=== PATIENT | female | born 1945 | race Asian ===

== ENCOUNTER 2018-09-06 15:44 | Inpatient (IN) | payer MEDICARE, BC ==
[~2018-09-06] VITALS: Ht 160 cm; Wt 71.1 kg
--- NOTE | 2018-09-06 16:02 | ERD ---
ER Documentation Chief Complaint Chief Complaint FROM HOME C/O NAUSEA,VOMITING,DIARRHEA SINCE YESTERDAY HPI 72-year-old female with a history of, hyperlipidemia, thyroid disease status post spine surgery April 2017 presents to the ED by ambulance for evaluation of abdominal pain. Paramedics report that milk collector was at the scene and stated that she spoke to the patient earlier and the patient seemed confused but now is back to her baseline. Patient states that after eating sushi last night that her sister brought over she developed crampy, generalized, now rating abdominal pain and multiple episodes of nonbloody non-mucoid diarrhea. Subsequently became nauseated and throughout the night had several episodes of nonbloody, nonbilious emesis. She complains of ongoing, generalized, crampy, moderate, nonradiating abdominal pain which localizes to the epigastrium. No relieving or exacerbating factors. Denies dysuria, polyuria hematuria. No chest pain, palpitations or shortness of breath. No fevers or chills. ROS All systems reviewed and are negative except as per history of present illness. Medications Home Meds Active Scripts Ondansetron (Ondansetron Odt) 4 Mg Tab.rapdis, 4 MG PO Q6H PRN for NAUSEA AND/OR VOMITING, #10 TAB Prov:EMILY OSPINA MD 09/06/18 Reported Medications Doxycycline Hyclate* (Doxycycline Hyclate*) 100 Mg Tablet.dr, 100 MG PO DAILY, TAB 09/06/18 Levocarnitine* (Levocarnitine*) 330 Mg Tablet, 330 MG PO BID, TAB 09/06/18 Docusate Sodium* (Colace*) 100 Mg Capsule, 100 MG PO BID, #60 CAP 09/06/18 Vitamin B Complex* (Vitamin B Complex*) 1 Each Tablet, 1 TAB PO DAILY, TAB 09/06/18 Acetaminophen* (Acetaminophen*) 500 MG Extra Strength Tablet, 500 MG PO Q4H PRN for PAIN AND OR ELEVATED TEMP, TAB 09/06/18 Sennosides* (Senna Lax*) 8.6 Mg Tablet, 2 TAB PO DAILY PRN for CONSTIPATION, TAB 09/06/18 Fluticasone Propionate* (Fluticasone Propionate* Nasal) 50 Mcg/Arabi - 16 Gm Arabi.susp, 1 SPRAY NASAL DAILY, #1 BOTTLE TO EACH NOSTRIL 09/06/18 Folic Acid* (Folic Acid*) 1 Mg Tablet, 1 MG PO DAILY, TAB 09/06/18 Simvastatin (Simvastatin) 10 Mg Tablet, 10 MG PO QHS, #30 TAB 09/06/18 Omeprazole* (Omeprazole*) 40 Mg Capsule.dr, 40 MG PO AC BREAKFAST, #30 CAP 09/06/18 Methimazole* (Methimazole*) 5 Mg Tablet, 5 MG PO DAILY, TAB 09/06/18 Duloxetine Hcl* (Duloxetine Hcl*) 60 Mg Capsule.dr, 60 MG PO DAILY, #30 CAP 09/06/18 Losartan Potassium* (Losartan Potassium*) 25 Mg Tablet, 25 MG PO DAILY, TAB 09/06/18 Gabapentin* (Gabapentin*) 100 Mg Capsule, 200 MG PO BID, #180 CAP 09/06/18 Ubidecarenone* (Co Q-10*) 100 Mg Capsule, 100 MG PO DAILY, CAP 09/06/18 Midodrine* (Midodrine*) 5 Mg Tablet, 5 MG PO TID, TAB 09/06/18 Allergies Allergies: Coded Allergies: hydromorphone (Verified Allergy, Severe, 09/06/18) PMhx/Soc Reviewed in chart. As per HPI. History of Surgery: Yes (Spinal fixation) Anesthesia Reaction: No Hx Neurological Disorder: No Hx Respiratory Disorders: No Hx Cardiac Disorders: Yes Hx Psychiatric Problems: No (Hypertension) Hx Miscellaneous Medical Probl: Yes (Hyperlipidemia, thyroid) Hx Alcohol Use: No Hx Substance Use: No Hx Tobacco Use: No (Improved) FmHx No cancer or stroke Physical Exam Vitals Vital Signs Date Temp Pulse Resp B/P (MAP) Pulse Ox O2 O2 Flow FiO2 Time Delivery Rate 09/06/18 98.1 92 18 124/73 98 Room Air 18:50 (90) 09/06/18 98 20 120/79 99 Room Air 17:52 (93) 09/06/18 99.0 101 18 118/77 99 15:49 (91) Physical Exam Const: No acute distress Head: Atraumatic Eyes: Normal Conjunctiva ENT: Normal External Ears, Nose and Mouth. Neck: Full range of motion. No meningismus. Resp: Clear to auscultation bilaterally Cardio: Regular rate and rhythm, no murmurs Abd: Soft, non tender, non distended. Normal bowel sounds Skin: No petechiae or rashes Back: No midline or flank tenderness Ext: No cyanosis, or edema Neur: Awake and alert Psych: Normal Mood and Affect Result Diagram: 09/06/18 1704 09/06/18 1704 Results 24 hrs Laboratory Tests Test 09/06/18 17:04 09/06/18 17:48 White Blood Count 7.8 10^3/ul Red Blood Count 4.82 10^6/ul Hemoglobin 12.4 g/dl Hematocrit 41.2 % Mean Corpuscular Volume 85.5 fl Mean Corpuscular Hemoglobin 25.7 pg Mean Corpuscular Hemoglobin Concent 30.1 g/dl Red Cell Distribution Width 15.4 % Platelet Count 321 10^3/UL Mean Platelet Volume 9.2 fl Immature Granulocytes % 0.400 % Neutrophils % 87.2 % Lymphocytes % 6.2 % Monocytes % 6.0 % Eosinophils % 0.1 % Basophils % 0.1 % Nucleated Red Blood Cells % 0.0 /100WBC Immature Granulocytes # 0.030 10^3/ul Neutrophils # 6.8 10^3/ul Lymphocytes # 0.5 10^3/ul Monocytes # 0.5 10^3/ul Eosinophils # 0.0 10^3/ul Basophils # 0.0 10^3/ul Nucleated Red Blood Cells # 0.0 10^3/ul Sodium Level 142 mmol/L Potassium Level 4.0 mmol/L Chloride Level 105 mmol/L Carbon Dioxide Level 20 mmol/L Anion Gap 17 Blood Urea Nitrogen 27 mg/dl Creatinine 1.09 mg/dl Est Glomerular Filtrat Rate mL/min mL/min Glucose Level 122 mg/dl Calcium Level 9.4 mg/dl Total Bilirubin 0.1 mg/dl Direct Bilirubin 0.00 mg/dl Indirect Bilirubin 0.1 mg/dl Aspartate Amino Transf (AST/SGOT) 38 IU/L Alanine Aminotransferase (ALT/SGPT) 16 IU/L Alkaline Phosphatase 155 IU/L Troponin I < 0.012 ng/ml Total Protein 8.6 g/dl Albumin 4.1 g/dl Globulin 4.50 g/dl Albumin/Globulin Ratio 0.91 Lipase 58 U/L Urine Color TRACIE Urine Clarity CLOUDY Urine pH 5.0 Urine Specific [place] 1.027 Urine Ketones NEGATIVE mg/dL Urine Nitrite NEGATIVE mg/dL Urine Bilirubin 1+ mg/dL Urine Urobilinogen NEGATIVE mg/dL Urine Leukocyte Esterase TRACE Mor/ul Urine Microscopic RBC 7 /HPF Urine Microscopic WBC 10 /HPF Urine Squamous Epithelial Cells FEW /HPF Urine Amorphous Crystals FEW /HPF Urine Bacteria FEW /HPF Urine Granular Casts FEW /HPF Urine Mucus FEW /HPF Urine Hemoglobin NEGATIVE mg/dL Urine Glucose NEGATIVE mg/dL Urine Total Protein 1+ mg/dl Current Medications Medications Dose Sig/Rosy Start Time Status Last (Trade) Ordered Route PRN Stop Time Admin Dose Reason Admin Sodium 500 ml @ Q1H STAT 09/06/18 DC 09/06/18 Chloride 500 mls/hr IV 16:28 17:05 09/06/18 17:27 Ondansetron 4 mg ONCE STAT 09/06/18 DC 09/06/18 HCl (Zofran IV 16:28 17:03 Inj) 09/06/18 16:32 Famotidine 20 mg ONCE ONCE 09/06/18 DC 09/06/18 (Pepcid Iv) IV 16:30 17:03 09/06/18 16:32 Ketorolac 10 mg ONCE STAT 09/06/18 DC 09/06/18 Tromethamine IV 16:28 17:04 (Toradol) 09/06/18 16:32 IV Flush 10 ml STK-MED 09/06/18 DC (NS 10 ml) ONCE .ROUTE 18:08 09/06/18 18:09 Sodium 100 ml @ ud STK-MED 09/06/18 DC Chloride ONCE .ROUTE 18:08 09/06/18 18:09 Iodixanol 100 ml STK-MED 09/06/18 DC (Visipaque ONCE .ROUTE 18:08 Locm) 09/06/18 18:09 Procedures/MDM DOCUMENTS REVIEWED: ED nurse, prior records EKG: Time: 1638. Sinus tachycardia. Ventricular rate 108. Normal [place] QRS. Nonspecific T wave changes. No acute ST segment elevation or depression. My Interpretation IMAGING: PROCEDURE: CT Abdomen and pelvis with contrast. CLINICAL INDICATION: Abdominal pain. TECHNIQUE: CT scan of the abdomen and pelvis with contrast was performed on a multi-detector high-resolution CT scanner. The patient was scanned following the uncomplicated administration of 100 cc of Omnipaque 300 intravenous contrast. Coronal and sagittal reformatted images were obtained from the axial source images. Images were reviewed on a high-resolution PACS workstation. DICOM images are available. One or more of the following dose reduction techniques were used: - Automated exposure control. - Adjustment of the mA and/or kV according to patient size. - Use of iterative reconstruction technique. Exam CTD/vol = 12.05 mGy. Total exam DLP = 722.91 mGy-cm. COMPARISON: None. FINDINGS: Evaluation of the lung bases demonstrates mild bibasilar atelectasis. The heart is mildly enlarged. There is a small hiatal hernia. Bilateral breast implants are present. Abdomen: The liver is normal in size. There is no focal mass or dilatation of the biliary tree. The gallbladder is distended and contains multiple gallstones. The spleen, pancreas and bilateral adrenal glands are within normal limits. Bilateral kidneys are normal in size with symmetric enhancement. There are tiny renal cortical cysts bilaterally. There is no hydronephrosis or hyd roureter. There is no retroperitoneal adenopathy. The abdominal aorta is of normal caliber with mild scattered atherosclerotic calcifications. There are air-fluid levels within the small large bowel. There is no bowel obstruction or free air. A normal appendix is identified. There are scattered diverticuli within the descending and sigmoid colon without evidence of diverticulitis. There is no ascites. Pelvis: The bladder is unremarkable. The uterus and adnexa are within normal limits. There is no significant pelvic adenopathy or free fluid. Evaluation of the osseous structures demonstrates no suspicious lytic or blastic lesion. There is an old fracture of the superior endplate of L2 with severe posterior displacement and marked lordotic deformity. There is a mild compression deformity of the T12 vertebral body with up to 30% loss in vertebral body height. There is posterior stabilization with bilateral rods and pedicle screws throughout the thoracolumbar spine. There is prior interbody fusion at L4-L5 and L5-S1. IMPRESSION: Air-fluid levels within the small and large bowel suggestive of an ileus. There is no bowel obstruction. Scattered diverticuli within the descending and sigmoid colon without evidence of diverticulitis. Cholelithiasis. Mild bibasilar atelectasis. Mild cardiomegaly. Small hiatal hernia. Mild vascular calcifications reflective of atherosclerosis. Old fracture of the superior endplate of L2 with severe posterior displacement and marked lordotic deformity. There are postsurgical changes with posterior stabilization with bilateral rods and pedicle screws. Mild deformity of T12, age indeterminate. .Nirmal Mráquez MD, MD Date Time Electronically viewed and signed by .Nirmal Márquez MD, MD on 09/06/2018 19:06 .T/ REEXAMINATION/REEVALUATION: Time: 2044. Well. Alert. Abdomen soft nontender. Time: 20:31. Observation Note: Time: 4 hours Family Hx: No Hypertension Evaluation: Multiple exams showed improving symptoms and no evidence of an acute intra-abdominal process or indication for admission. MEDICAL DECISION MAKIN-year-old female with a history of, hyperlipidemia, thyroid disease status post spine surgery April 2017 presents to the ED by ambulance for evaluation of abdominal pain. CBC is unremarkable for leukocytosis or anemia. Chemistry reveals elevated BUN/creatinine but no electrolyte abnormalities. EKG consistent with sinus tachycardia but no ischemic changes or ectopy. Troponin is not elevated. CT of the abdomen pelvis with intravenous contrast performed to evaluate for acute process including but not limited to appendicitis, diverticulitis, bowel obstruction, perforated viscus, mesenteric ischemia, obstructive uropathy and abdominal aortic aneurysm reveals dilated loops of bowel consistent with ileus but no small bowel obstruction. Patient improved with intravenous hydration, analgesics and antiemetics. Observed in the ED for over 4 hours. Abdomen is soft nontender, tolerating PO's and stable for discharge precautionary instructions and outpatient follow-up as counseled. Stable for discharge with precautionary instructions and outpatient follow-up as counseled. Counseled patient regarding diagnostic workup, diagnosis and need for followup. Understands to return to ED if symptoms recur, worsen or any other concerns. Departure Diagnosis: Primary Impression: Acute generalized abdominal pain Additional Impressions: Nausea vomiting and diarrhea Ileus Condition: Stable (Improved) EMILY OSPINA MD Sep 06, 2018 16:02
[2018-09-06] MEDS ORDERED: ONDANSETRON 4 MG INJ IV STA (16:28)
[2018-09-06] MEDS ORDERED: SOD CHLORIDE 0.9% 500 ML IV STA (16:28)
[2018-09-06] MEDS ORDERED: KETOROLAC 15 MG INJ IV STA (16:28)
[2018-09-06] MEDS ORDERED: MIDO5TAB PO (16:29)
[2018-09-06] MEDS ORDERED: UBID100C44 PO (16:30)
[2018-09-06] MEDS ORDERED: FAMOTIDINE 20 MG INJ IV ONE (16:30)
[2018-09-06] MEDS ORDERED: GABA100C14 PO (16:30)
[2018-09-06] MEDS ORDERED: LOSA25TA6 PO (16:41)
[2018-09-06] MEDS ORDERED: DULO60CA59 PO (16:41)
[2018-09-06] MEDS ORDERED: OMEP40CA6 PO (16:42)
[2018-09-06] MEDS ORDERED: METH-493 PO (16:42)
[2018-09-06] MEDS ORDERED: FOLI-49 PO (16:43)
[2018-09-06] MEDS ORDERED: FLUT16SP17 NASAL (16:43)
[2018-09-06] MEDS ORDERED: ZOC10 PO (16:43)
[2018-09-06] MEDS ORDERED: ACET-141 PO (16:44)
[2018-09-06] MEDS ORDERED: SENN-120 PO (16:44)
[2018-09-06] MEDS ORDERED: VIT1TABL46 PO (16:45)
[2018-09-06] MEDS ORDERED: LEVO330T PO (16:46)
[2018-09-06] MEDS ORDERED: DOCU-144 PO (16:46)
[2018-09-06] MEDS ORDERED: DOXY100T20 PO (16:47)
[2018-09-06] MEDS ORDERED: SOD CHLORIDE 0.9% 100 ML ONE (18:08)
[2018-09-06] MEDS ORDERED: IODIXANOL LOCM 100 ML BTL ONE (18:08)
[2018-09-06] MEDS ORDERED: ONDA4TAB14 PO (21:20)
[2018-09-06] MEDS ORDERED: CEFTRIAXONE 1 GM/50 ML (PMX) 50 ML IVPB SCH (23:00)
[2018-09-06] MEDS ORDERED: ONDANSETRON 4 MG INJ IV PRN (23:00)
[2018-09-06] MEDS ORDERED: ACETAMINOPHEN 325 MG TAB PO PRN (23:00)
[2018-09-06] MEDS ORDERED: NACL 0.9% 3 ML SYG IV SCH (23:00)
[2018-09-06] MEDS ORDERED: MAGNESIUM SULFATE 1 GM/D5W 100 ML IVPB ONE (23:00)
[2018-09-07] MEDS: SOD CHLORIDE 0.9% 1,000 ML IV SCH ×3 (00:02→09:24)
--- NOTE | 2018-09-07 00:06 | HP ---
Date/Time of Note Date/Time of Note DATE: 09/07/18 TIME: 00:06 Assessment/Plan VTE Prophylaxis Pharmacological prophylaxis: heparin Lines/Catheters IV Catheter Type (from Nrs): Saline Lock Assessment/Plan Hospital Course This is a 72-year-old female being admitted to the telemetry floor for: #1 acute encephalopathy: Likely toxic metabolic. At the current time patient appears to be back at baseline. We will continue to monitor closely on telemetry. We will need to confirm with the caregiver the patient's baseline. CT scan of the head did not show any acute abnormalities. Likely downgrade to MedSurg in the a.m. as long as no acute events overnight. #2 ileus: Secondary possibly to underlying gastroenteritis versus UTI versus other. Patient does have history of thyroid disease as well. Will check TSH levels. Patient does report the symptoms started after eating sushi. Will check stool studies. IV fluid hydration normal saline to keep patient n.p.o. except meds pain control. Check magnesium level and potassium levels. KUB in the a.m. #3 urinary tract infection: Ceftriaxone 1 g every 24 hours, urine culture #4 thyroid disease: Suspect hyperthyroidism: Patient is currently on methimazole. Will check TSH and thyroid studies. Resume methimazole #5 Anxiety: Resume duloxetine as indicated #6 GERD: IV Protonix #7 questionable hypotension: We will need to confirm whether the patient is on Midodrine in the a.m. #8 Hypertension: Resume losartan in the a.m. provided we will function stay stable #9 DVT GI prophylaxis: Heparin subcu,, Protonix IV Further treatment strategy will be implemented as per the clinical course. Result Diagram: 09/06/18 1704 09/06/18 1704 Results 24hrs Laboratory Tests Test 09/06/18 17:04 09/06/18 17:48 White Blood Count 7.8 Red Blood Count 4.82 Hemoglobin 12.4 Hematocrit 41.2 Mean Corpuscular Volume 85.5 Mean Corpuscular Hemoglobin 25.7 L Mean Corpuscular Hemoglobin Concent 30.1 L Red Cell Distribution Width 15.4 H Platelet Count 321 Mean Platelet Volume 9.2 Immature Granulocytes % 0.400 Neutrophils % 87.2 H Lymphocytes % 6.2 L Monocytes % 6.0 Eosinophils % 0.1 Basophils % 0.1 Nucleated Red Blood Cells % 0.0 Immature Granulocytes # 0.030 Neutrophils # 6.8 Lymphocytes # 0.5 L Monocytes # 0.5 Eosinophils # 0.0 Basophils # 0.0 Nucleated Red Blood Cells # 0.0 Sodium Level 142 Potassium Level 4.0 Chloride Level 105 Carbon Dioxide Level 20 L Anion Gap 17 H Blood Urea Nitrogen 27 H Creatinine 1.09 H Est Glomerular Filtrat Rate mL/min Glucose Level 122 Calcium Level 9.4 Total Bilirubin 0.1 L Direct Bilirubin 0.00 Indirect Bilirubin 0.1 Aspartate Amino Transf (AST/SGOT) 38 Alanine Aminotransferase (ALT/SGPT) 16 Alkaline Phosphatase 155 H Troponin I < 0.012 Total Protein 8.6 H Albumin 4.1 Globulin 4.50 H Albumin/Globulin Ratio 0.91 Lipase 58 Urine Color TRACIE Urine Clarity CLOUDY A Urine pH 5.0 Urine Specific [place] 1.027 Urine Ketones NEGATIVE Urine Nitrite NEGATIVE Urine Bilirubin 1+ H Urine Urobilinogen NEGATIVE Urine Leukocyte Esterase TRACE A Urine Microscopic RBC 7 H Urine Microscopic WBC 10 H Urine Squamous Epithelial Cells FEW Urine Amorphous Crystals FEW A Urine Bacteria FEW A Urine Granular Casts FEW A Urine Mucus FEW A Urine Hemoglobin NEGATIVE Urine Glucose NEGATIVE Urine Total Protein 1+ H HPI/ROS Admit Date/Time Admit Date/Time Hx of Present Illness Chief complaint: Abdominal pain This is a 72-year-old female with a history of, hyperlipidemia, thyroid disease status post spine surgery April 2017 presented to the by ambulance for evaluation of abdominal pain. Patient states that after eating sushi last night that her sister brought over she developed crampy, generalized, abdominal pain and multiple episodes of nonbloody non-mucoid diarrhea. Subsequently became nauseated and throughout the night had several episodes of nonbloody, nonbilious emesis. She complains of ongoing, generalized, crampy, moderate, nonradiating abdominal pain which localizes to the epigastrium. No relieving or exacerbating factors. Denies dysuria, polyuria hematuria. No chest pain, palpitations or shortness of breath. No fevers or chills. Of note patient was to be discharged from the emergency department however she was noted to be confused and a CT scan of the head was ordered which did not show any acute normality's. Upon my examination of the patient at the bedside she was alert and oriented x3. Allergies: Hydromorphone Medications: See Nov Const: As per HPI Eyes : No pain discharge or redness or change in visual acuity ENT: No pain, sore throat, congestion, congestion, dysphagia or discharge Respiratory: No shortness of breath, cough, sputum, wheezing, or pleuritic pain Cardiovascular: No chest pain, palpitation, PND, or edema GI : As per HPI Genitourinary: Urinary frequency, suprapubic pain Musculoskeletal: No joint pain, back pain, neck pain, restricted range of motion in neck or joints Skin: No rash, bruising or hives Neuro: No headache, dizziness, syncope, seizure, focal weakness Endocrine: No polyuria, polydipsia, temperature intolerance Psych: No hallucination, depression, anxiety or suicidal ideation PMH/Family/Social Past Medical History hyperlipidemia, thyroid disease , anxiety, GERD Medications Current Medications Sodium Chloride 1,000 ml @ 100 mls/hr Q10H IV Last administered on 09/07/18at 00:02; Admin Dose 100 MLS/HR; Start 09/06/18 at 22:45 IV Flush (NS 3 ml) 3 ml PER PROTOCOL IV ; Start 09/06/18 at 23:00 Ondansetron HCl (Zofran Inj) 4 mg Q6H PRN IV NAUSEA AND/OR VOMITING; Start 09/06/18 at 23:00 Acetaminophen (Tylenol Tab) 650 mg Q6H PRN PO PAIN LEVEL 1-3 OR FEVER; Start 09/06/18 at 23:00 Enoxaparin Sodium (Lovenox) 30 mg DAILY SC ; Start 09/07/18 at 09:00 Ceftriaxone Sodium 50 ml @ 100 mls/hr Q24H IVPB ; Start 09/06/18 at 23:00 Coded Allergies: hydromorphone (Verified Allergy, Severe, 09/06/18) Past Surgical History status post spine surgery April 2017 Family History Significant Family History: no pertinent family hx Social History Alcohol Use: none Smoking Status: Never smoker Drug Use: none Exam/Review of Systems Vital Signs Vitals Vital Signs Date Temp Pulse Resp B/P (MAP) Pulse Ox O2 O2 Flow FiO2 Time Delivery Rate 09/06/18 98.1 92 18 124/73 98 Room Air 18:50 (90) Exam Exam General: Patient is a pleasant female currently lying in bed in no acute distress HEENT: Atraumatic, normocephalic. The pupils are equal, round and reactive. Extraocular motor are intact Neck: Supple with full range of motion. No rigidity or meningismus Chest: Nontender Lungs: Clear to auscultation bilaterally no crackles rales or wheezing Heart: Normal S1-S2, Regular rhythm and rate. No murmur, S3, or S4 Abdomen: Obese, soft , currently nontender to palpation, nondistended, hypoactive bowel sounds, no guarding no rebound tenderness , No masses or organomegaly. No costovertebral temporal angle mass Extremities: Normal to inspection, no edema no cyanosis Neurologic: Normal mental status, speech normal, cranial nerves II through XII are intact, motor and sensory are intact, Additional Comments PROCEDURE: CT Abdomen and pelvis with contrast. CLINICAL INDICATION: Abdominal pain. TECHNIQUE: CT scan of the abdomen and pelvis with contrast was performed on a multi-detector high-resolution CT scanner. The patient was scanned following the uncomplicated administration of 100 cc of Omnipaque 300 intravenous contrast. Coronal and sagittal reformatted images were obtained from the axial source images. Images were reviewed on a high-resolution PACS workstation. DICOM images are available. One or more of the following dose reduction techniques were used: - Automated exposure control. - Adjustment of the mA and/or kV according to patient size. - Use of iterative reconstruction technique. Exam CTD/vol = 12.05 mGy. Total exam DLP = 722.91 mGy-cm. COMPARISON: None. FINDINGS: Evaluation of the lung bases demonstrates mild bibasilar atelectasis. The heart is mildly enlarged. There is a small hiatal hernia. Bilateral breast implants are present. Abdomen: The liver is normal in size. There is no focal mass or dilatation of the biliary tree. The gallbladder is distended and contains multiple gallstones. The spleen, pancreas and bilateral adrenal glands are within normal limits. Bilateral kidneys are normal in size with symmetric enhancement. There are tiny renal cortical cysts bilaterally. There is no hydronephrosis or hydroureter. There is no retroperitoneal adenopathy. The abdominal aorta is of normal caliber with mild scattered atherosclerotic calcifications. There are air-fluid levels within the small large bowel. There is no bowel obstruction or free air. A normal appendix is identified. There are scattered diverticuli within the descending and sigmoid colon without evidence of diverticulitis. There is no ascites. Pelvis: The bladder is unremarkable. The uterus and adnexa are within normal limits. There is no significant pelvic adenopathy or free fluid. Evaluation of the osseous structures demonstrates no suspicious lytic or blastic lesion. There is an old fracture of the superior endplate of L2 with severe posterior displacement and marked lordotic deformity. There is a mild compression deformity of the T12 vertebral body with up to 30% loss in vertebral body height. There is posterior stabilization with bilateral rods and pedicle screws throughout the thoracolumbar spine. There is prior interbody fusion at L4-L5 and L5-S1. IMPRESSION: Air-fluid levels within the small and large bowel suggestive of an ileus. There is no bowel obstruction. Scattered diverticuli within the descending and sigmoid colon without evidence of diverticulitis. Cholelithiasis. Mild bibasilar atelectasis. Mild cardiomegaly. Small hiatal hernia. Mild vascular calcifications reflective of atherosclerosis. Old fracture of the superior endplate of L2 with severe posterior displacement and marked lordotic deformity. There are postsurgical changes with posterior stabilization with bilateral rods and pedicle screws. Mild deformity of T12, age indeterminate. .Nirmal Márquez MD, MD Date Time Electronically viewed and signed by .Nirmal Márquez MD, MD on 09/06/2018 19:06 .T/ CC: EMILY OSPINA MD [id number] PROCEDURE: CT Brain without contrast. CLINICAL INDICATION: 72-year-old female. Altered mental status. Confusion. TECHNIQUE: A CT of the brain was performed on a multi-slice CT scanner utilizing axial imaging from the skull base through the vertex without IV contrast. Multiplanar reformatted images were made. Images were reviewed on a PACS workstation. One or more the following dose reduction techniques were utilized: Automated exposure control, adjustment of mA/ or kV according to patient's size, or use of iterative reconstruction technique. DICOM images are available for review. The CTDIvol is 39.64 mGy and the DLP is 634.23 mGycm. COMPARISON: None FINDINGS: Images were obtained after the patient received intravenous contrast for a CT abdomen pelvis exam earlier in the evening. The patient's head was not symmetrically placed in the art department head. No mass effect or midline shift. Normal ventricles for age. No acute intra-axial or extra-axial hemorrhage. No subdural collection. Solomon - white matter differentiation is maintained. No venous enhancement versus contrast enhancing pineal gland with anterior calcification, measuring 9.0 mm in transverse diameter. Visualized paranasal sinuses are clear. Mastoid air cells are clear. IMPRESSION: No acute changes. Contrast enhancing vein of Dave versus 9 mm enhancing pineal gland with anterior calcification. RPTAT: [facility] Physician Angelica Date Time Electronically viewed and signed by Physician Angelica on 09/06/2018 22:18 RS/ CC: EMILY OSPINA MD [id number] ALINE WEBSTER Sep 07, 2018 00:06
[2018-09-07 00:40] VITALS: BP 132/68; PULSE 78; RESP 18
[2018-09-07 00:45] VITALS: Ht 160 cm; Wt 71.1 kg
--- NOTE | 2018-09-07 01:15 | NUR ---
Pt refused admission photos. Pt is alert and oriented x4.
--- NOTE | 2018-09-07 06:00 | NUR ---
End of Shift Summary No change in pt condition. See pt assessment and EMAR.
--- NOTE | 2018-09-07 06:30 | NUR ---
Pt is incontinent and uses diapers at home. Pt refused chux and the mesh underwear with a pad. Notified charge nurse, Chris, and a diaper was placed on the pt.
--- NOTE | 2018-09-07 07:15 | NUR ---
Left voice message for pt POA, Medhat Tran, that pt will be transferred to the [address] [place] [address] to room #3808.
[2018-09-07 07:27] VITALS: BP 118/59; PULSE 96; RESP 20
[2018-09-07] MEDS ORDERED: ENOXAPARIN 30 MG/0.3 ML SYG SC SCH (09:00)
[2018-09-07] MEDS ORDERED: INFLUENZA VIRUS VACCINE 0.5 ML (DISPENSING) IM* ONE (09:00)
[2018-09-07] MEDS: HEPARIN 5,000 UNIT/1 ML VIAL SC SCH ×3 (09:30→21:02)
--- NOTE | 2018-09-07 11:24 | PN ---
Date/Time of Note Date/Time of Note DATE: 09/07/18 TIME: 11:15 Assessment/Plan VTE Prophylaxis Risk score (from Ns)>0 risk: 4 [place] [facility] [place] contraindicated: low risk/ambulating Pharmacological prophylaxis: NA/contraindicated Pharm contraindication: low risk/ambulating, renal impairment Lines/Catheters IV Catheter Type (from [facility]): Peripheral IV Urinary Cath still in place: No Assessment/Plan Hospital Course SUBJECTIVE: Lying in bed, feeling hungry and wants to eat. She is passing flatus. No bowel movement today. Last BM yesterday. But she does not feel any constipated. No fevers, dysuria, hematuria,N/V or abdominal pain. OBJECTIVE: Vital signs-see below PHYSICAL EXAM: Constitutional: Well-developed, adequately built, lying in bed comfortably. Psych: nl mood/affect, no complaints Head: atraumatic, normocephalic Eyes: nl conjunctiva, nl sclera ENMT: mucosa pink and moist, nl external ears & nose Neck: non-tender, supple Respiratory: clear to auscultation, normal air movement Cardiovascular: nl pulses, regular rate and rhythm Gastrointestinal: Obese/protuberant abdomen. Non-tender, soft, bowel sounds active in all 4 quadrants. Musculoskeletal/extremities: nl extremities to inspection, motor strength equal bilaterally, no focal deficit. Normal pulses,no cyanosis, no edema. Neurological: Alert oriented 3,nl speech, nl strength Skin: nl turgor ASSESSMENT/PLAN:72-year-old female with a past medical history of hypertension, dyslipidemia, hyperthyroidism, presented to the emergency room with sudden onset of nausea/vomiting/diarrhea after she had a sushi dinner last night. 1. Acute gastroenteritis, likely food/seafood intolerance. -Symptoms resolved. -Start clear diet and advance as tolerated. 2. Possible ileus in light of #1 -Symptoms resolved. We will start patient on diet. 3. Acute kidney injury. Patient's UA abnormal With positive RBC, amorphous crystals, and granular cast. Patient also take losartan at home. -Abdominal CT did not show any kidney stones. -We will obtain a KUB -Hold losartan. -Continue gentle hydration. -Nephrology following. We will follow-up recommendations. -Renal ultrasound has been ordered. 4. Hyperthyroidism -On methimazole treatment. Recommend outpatient follow-up 5. Hypertension -We will hold losartan in the setting of acute kidney injury. -Blood pressure stable without any antihypertensive. We will continue to monitor and intervene as needed. 6. Dyslipidemia -Resume statin once stable for p.o. 7. Depressive disorders. -Resume Cymbalta once stable for p.o. DVT prophylaxis: SCDs PUD prophylaxis: Pepcid CODE STATUS: Full code Diet: Clear diet and advance as tolerated. Disposition: Stop antibiotic. Continue current medical management. Monitor renal function closely. Follow-up ordered tests. Patient was seen in collaboration with Dr. Richard. Result Diagram: 09/07/18 0444 09/07/18 0444 Results 24hrs Laboratory Tests Test 09/06/18 17:04 09/06/18 17:48 09/07/18 04:44 White Blood Count 7.8 7.2 Red Blood Count 4.82 4.68 Hemoglobin 12.4 12.2 Hematocrit 41.2 40.7 Mean Corpuscular Volume 85.5 87.0 Mean Corpuscular Hemoglobin 25.7 L 26.1 L Mean Corpuscular 30.1 L 30.0 L Hemoglobin Concent Red Cell Distribution Width 15.4 H 15.7 H Platelet Count 321 290 Mean Platelet Volume 9.2 9.1 Immature Granulocytes % 0.400 0.600 H Neutrophils % 87.2 H 83.7 H Lymphocytes % 6.2 L 9.1 L Monocytes % 6.0 6.1 Eosinophils % 0.1 0.4 Basophils % 0.1 0.1 Nucleated Red Blood Cells % 0.0 0.0 Immature Granulocytes # 0.030 0.040 H Neutrophils # 6.8 6.0 Lymphocytes # 0.5 L 0.7 L Monocytes # 0.5 0.4 Eosinophils # 0.0 0.0 Basophils # 0.0 0.0 Nucleated Red Blood Cells # 0.0 0.0 Sodium Level 142 141 Potassium Level 4.0 4.1 Chloride Level 105 101 Carbon Dioxide Level 20 L 23 Anion Gap 17 H 17 H Blood Urea Nitrogen 27 H 33 H Creatinine 1.09 H 1.50 H Est Glomerular Filtrat Rate mL/min Glucose Level 122 99 Calcium Level 9.4 9.0 Total Bilirubin 0.1 L 0.0 L Direct Bilirubin 0.00 0.00 Indirect Bilirubin 0.1 0.0 Aspartate Amino 38 39 Transf (AST/SGOT) Alanine 16 27 Aminotransferase (ALT/SGPT) Alkaline Phosphatase 155 H 128 H Troponin I < 0.012 Total Protein 8.6 H 7.6 # Albumin 4.1 3.9 Globulin 4.50 H 3.70 H Albumin/Globulin Ratio 0.91 1.05 Lipase 58 Urine Color TRACIE Urine Clarity CLOUDY A Urine pH 5.0 Urine Specific [place] 1.027 Urine Ketones NEGATIVE Urine Nitrite NEGATIVE Urine Bilirubin 1+ H Urine Urobilinogen NEGATIVE Urine Leukocyte Esterase TRACE A Urine Microscopic RBC 7 H Urine Microscopic WBC 10 H Urine Squamous Epithelial Cells FEW Urine Amorphous Crystals FEW A Urine Bacteria FEW A Urine Granular Casts FEW A Urine Mucus FEW A Urine Hemoglobin NEGATIVE Urine Glucose NEGATIVE Urine Total Protein 1+ H Hemoglobin A1c 5.5 Magnesium Level 2.2 Triglycerides Level 132 Cholesterol Level 163 LDL Cholesterol, Calculated 98 HDL Cholesterol 39 Cholesterol/HDL Ratio 4.1 Thyroid Stimulating 4.810 H Hormone (TSH) Free Thyroxine Index 2.19 Thyroxine (T4) 6.2 Free Triiodothyronine (T3) pg/mL 2.36 L Triiodothyronine (T3) Uptake 35.3 Exam/Review of Systems Vital Signs Vitals Vital Signs Date Temp Pulse Resp B/P (MAP) Pulse Ox O2 O2 Flow FiO2 Time Delivery Rate 09/07/18 98.2 96 20 118/59 100 Nasal 07:27 (78) Cannula 09/07/18 3.0 00:45 Intake and Output 09/06/18 09/06/18 09/07/18 1515:00 23:00 07:00 IntakeIntake Total 300 ml BalanceBalance 300 ml Medications Medications Current Medications Sodium Chloride 1,000 ml @ 100 mls/hr Q10H IV Last administered on 09/07/18at 09:24; Admin Dose 100 MLS/HR; Start 09/06/18 at 22:45 IV Flush (NS 3 ml) 3 ml PER PROTOCOL IV ; Start 09/06/18 at 23:00 Ondansetron HCl (Zofran Inj) 4 mg Q6H PRN IV NAUSEA AND/OR VOMITING; Start 09/06/18 at 23:00 Acetaminophen (Tylenol Tab) 650 mg Q6H PRN PO PAIN LEVEL 1-3 OR FEVER; Start 09/06/18 at 23:00 Ceftriaxone Sodium 50 ml @ 100 mls/hr Q24H IVPB Last administered on 09/07/18at 02:22; Admin Dose 100 MLS/HR; Start 09/06/18 at 23:00 Heparin Sodium (Porcine) (Heparin (5000 Units/1ml)) 5,000 unit Q8 SC Last administered on 09/07/18at 09:30; Admin Dose 5,000 UNIT; Start 09/07/18 at 07:00 Methimazole (Tapazole) 5 mg DAILY PO ; Start 09/07/18 at 09:00 SHANKAR CORREA NP Sep 07, 2018 11:23
[2018-09-07] MEDS ORDERED: SENNA TAB PO PRN (11:30)
[2018-09-07] MEDS: METHIMAZOLE 5 MG TAB PO SCH (12:16)
--- NOTE | 2018-09-07 12:32 | CONS ---
DATE OF ADMISSION: 09/06/2018 DATE OF CONSULTATION: 09/07/2018 TYPE OF CONSULTATION: Nephrology. REASON FOR CONSULTATION: Acute kidney injury. REQUESTING PHYSICIAN: Marek Webster MD HISTORY OF PRESENT ILLNESS: This is a 72-year-old female with a past medical history of dyslipidemia , history of hypothyroidism, history of scoliosis, status post spine surgery 2016 who presented to [facility] Emergency Room for evaluation of abdominal pain. The patient states that she is karina sargent today before, started developing crampy generalized pain, abdominal pain with multiple epi sodes of nonbloody, nonmucus diarrhea. The patient's symptoms progressed. As a result, she came to the Emergency Room. Upon arrival, she had a CT scan of the head which did not show any acute finding s. A CT scan of abdomen and pelvis was performed which showed findings of a small and large bowel di latation suggestive of ileus. No evidence of obstruction. The patient in the Emergency Room was giv en IV fluids and admitted to med/surg for evaluation. In terms of patient's renal history, the patient denies any prior history of chronic kidney disease. On admission, the patient had creatinine 1.09 mg/dL which is increased to 1.5 mg/dL. The patient di d receive a course of Toradol and did have hemodynamic fluctuations. There are no reports of any hem optysis, hematemesis or hematochezia. PAST MEDICAL HISTORY: History of hypothyroidism, history of GERD, history of anxiety, dyslipidemia. PAST SURGICAL HISTORY: Status post surgery 04/2017. FAMILY HISTORY: No family history of kidney disease. SOCIAL HISTORY: Does not drink, smoke or do drugs. MEDICATIONS: The patient's medications have been reviewed. REVIEW OF SYSTEMS: A 14-point review of systems conducted. Pertinent positives stated in HPI, other rojo negative. PHYSICAL EXAMINATION: VITAL SIGNS: Blood pressure is 118/59, respirations 20, pulse 96, temperature 98.2. HEENT: Head is normocephalic. NECK: Supple. HEART: Regular rate. LUNGS: Show diminished breath sounds at the base. ABDOMEN: Soft, nontender to palpation without rebound or guarding. EXTREMITIES: Negative for clubbing, cyanosis, no edema. DERMATOLOGIC: No rashes. MUSCULOSKELETAL: No joint effusion. NEUROLOGIC: No change in exam. MEDICATIONS: The patient's medications have been reviewed. LABORATORY DATA: Shows sodium 141, potassium 4.1, BUN 33, creatinine 1.50. White count 7.2, hemoglo bin 12.2, platelet count is 290. ASSESSMENT AND PLAN: This is a 72-year-old female who presents with: 1. Nonoliguric acute kidney injury with unknown baseline creatinine. Etiology of acute kidney injur y is possibly due to acute tubular necrosis, hemodynamics. The patient's urinalysis does show eviden ce of granular casts, which can be seen with tubular injury. The patient also noted to have mild pyu maco, hematuria and proteinuria on urinalysis. Plan at this point is to do a full evaluation. Will c heck a renal ultrasound to rule out obstruction. Will repeat a urinalysis. Will check urine electro lytes. We will continue patient on IV hydration. Would avoid any NSAIDs, KELSEY inhibitor or ARBs duri ng the hospital course. Monitor I's and O's. Continue supportive care, renally dose all meds, avoid nephrotoxins. 2. Mineral bone disorder, monitor calcium and phosphorus levels. 3. Ileus. The patient's CT scan shows findings consistent with ileus. Etiology may be secondary to gastroenteritis. Will continue to monitor. Follow up with GI. Continue bowel rest, IV hydration. 5. Urinary tract infection. Continue current antibiotic regimen. 6. Hypothyroidism. Continue Synthroid. 7. Acute encephalopathy, etiology is likely toxic metabolic. Continue to monitor. CT scan is negat ale for acute stroke. 8. History of hypertension. The patient is currently on IV fluids. Will hold blood pressure medica tions and monitor. Thank you, Dr. Webster, for this interesting consult. It will be a pleasure to follow patient with y ou throughout the hospital course. Dictated By: NITIN MORAN DO NR/NTS Conf#: [id number] DID#: [id number] CC: MAREK WEBSTER MD;*EndCC*
[2018-09-07 14:42] VITALS: BP 101/55; PULSE 81; RESP 16
--- NOTE | 2018-09-07 18:32 | NUR ---
Continuity of care downgraded from 6W TELE, head to toe assessment done. No sob , no acute distress , dry stage 2 pressure ulcers left buttocks kept clean and covered w/ non adherent dressing. Wound consult tomorrow, incontinent b&b assisted ADLS safety measures provided and VS within range will continue POC
[2018-09-07 20:30] VITALS: BP 136/66; PULSE 81; RESP 18
[2018-09-07] MEDS: DOCUSATE SODIUM 100 MG CAP PO SCH ×2 (21:00→21:01)
[2018-09-08] MEDS: SOD CHLORIDE 0.9% 1,000 ML IV SCH (01:39)
[2018-09-08 02:25] VITALS: BP 138/65; PULSE 95; RESP 18
[2018-09-08] MEDS: HEPARIN 5,000 UNIT/1 ML VIAL SC SCH ×3 (05:10→21:36)
--- NOTE | 2018-09-08 05:59 | NUR ---
No acute changes during shift. Pt safe and free from injury. Pt A&Ox4 and able to make needs known. All needs anticipated and attended to. Pt slept through the night. Repositioned pt and checked for incontinence Q2H. Pt pain assessed and controlled through shift. No signs of discomfort or distress. No SOB. Pt currently sleeping comfortably in bed. Bed alarm on, call light within reach. Will continue to monitor.
[2018-09-08 08:27] VITALS: BP 164/76; PULSE 75; RESP 20
[2018-09-08] MEDS: DOCUSATE SODIUM 100 MG CAP PO SCH ×2 (09:00→21:00)
[2018-09-08] MEDS: DULOXETINE 30 MG CAP DR PO SCH (09:40)
[2018-09-08] MEDS: METHIMAZOLE 5 MG TAB PO SCH (09:41)
--- NOTE | 2018-09-08 10:06 | PN ---
DATE: 09/08/2018 SUBJECTIVE: The patient noted to have diarrhea overnight. No other events noted. No hemoptysis, he matemesis, hematochezia. OBJECTIVE: VITAL SIGNS: Blood pressure is 164/76, respirations 20, pulse 75, temperature 97.7. HEENT: Head is normocephalic. NECK: Supple. HEART: Regular rate. LUNGS: Show diminished breath sounds at the base. ABDOMEN: Soft, nontender to palpation without rebound or guarding. EXTREMITIES: Negative for clubbing, cyanosis, no edema. DERMATOLOGIC: No rashes. MUSCULOSKELETAL: No joint effusion. NEUROLOGIC: No change in exam. MEDICATIONS: The patient's medications have been reviewed. LABORATORY DATA: Shows sodium 140, BUN 28, creatinine 1.06. White count 6.3, hemoglobin 11.2, plate let count is 272. The patient's urinalysis shows FENa greater than 1%, a protein creatinine ratio ap proximately 24 mg per gram of creatinine. Renal ultrasound was reviewed, shows no hydronephrosis. ASSESSMENT AND PLAN: 1. Nonoliguric acute kidney injury with unknown baseline creatinine. Etiology of acute kidney injur y is likely multifactorial secondary to tubular injury hemodynamics. The patient's renal function ugarte s improved with IV hydration. At this point, will continue current treatment plans, supportive care, renally dose all meds. Monitor closely. 2. Mineral bone disorder, monitor calcium and phosphatase levels. 3. Ileus. The patient is clinically improving. Continue to monitor. Follow up with GI. 4. Urinary tract infection. Continue antibiotic regimen. 5. Hypothyroidism. Continue Synthroid. 6. Acute encephalopathy, etiology toxic metabolic. Continue to monitor. 7. Hypertension. The patient's blood pressure remains elevated. Will discontinue IV fluids, monito r closely. Dictated By: NITIN MORAN DO NR/NTS Conf#: [id number] DID#: [id number] CC: ALINE WEBSTER MD;*EndCC*
--- NOTE | 2018-09-08 12:51 | PN ---
Date/Time of Note Date/Time of Note DATE: 09/08/18 TIME: 12:48 Assessment/Plan VTE Prophylaxis Risk score (from Ns)>0 risk: 3 SCD applied (from [facility] [place] Yes Pharmacological prophylaxis: NA/contraindicated Pharm contraindication: renal impairment, anticoag not tolerated Lines/Catheters IV C[facility]ter Type (from [facility]): Peripheral IV Urinary Cath still in place: No Assessment/Plan Hospital Course SUBJECTIVE: No acute overnight episodes. Patient has been tolerating full liquid diet. No abdominal pain no nausea or vomiting reported. OBJECTIVE: Vital signs-see below PHYSICAL EXAM: Constitutional: Well-developed, adequately built, lying in bed comfortably. Psych: nl mood/affect, no complaints Head: atraumatic, normocephalic Eyes: nl conjunctiva, nl sclera ENMT: mucosa pink and moist, nl external ears & nose Neck: non-tender, supple Respiratory: clear to auscultation, normal air movement Cardiovascular: nl pulses, regular rate and rhythm Gastrointestinal: Obese/protuberant abdomen. Non-tender, soft, bowel sounds active in all 4 quadrants. Musculoskeletal/extremities: nl extremities to inspection, motor strength equal bilaterally, no focal deficit. Normal pulses,no cyanosis, no edema. Neurological: Alert oriented 3,nl speech, nl strength Skin: nl turgor ASSESSMENT/PLAN:72-year-old female with a past medical history of hypertension, dyslipidemia, hyperthyroidism, presented to the emergency room with sudden onset of nausea/vomiting/diarrhea after she had a sushi dinner last night. 1. Acute gastroenteritis, likely food/seafood intolerance. -Symptoms resolved. 2. Possible ileus in light of #1 -Symptoms resolved. -Advance diet as tolerated. 3. Acute kidney injury, multifactorial with ATN/hemodynamics. -Renal function stabilized. -Appreciate nephrology input. -Avoid nephrotoxins. 4. Hyperthyroidism -On methimazole treatment. Recommend outpatient follow-up 5. Hypertension -With stable blood pressure except for one episode of SBP above 160, likely attributed by fluids. -Discontinue IV fluids and monitor blood pressure. If blood pressure remains high, will start her on antihypertensive. 6. Dyslipidemia -Continue statin 7. Depressive disorders. -Continue Cymbalta DVT prophylaxis: SCDs PUD prophylaxis: Pepcid CODE STATUS: Full code Diet: Clear diet and advance as tolerated. Disposition: Overall, patient with improvement in symptoms. We will advance diet further. Anticipate discharge in a.m. if patient remains medically stable. Will also obtain PT eval and treatment. Patient was seen in collaboration with Dr. Richard. Result Diagram: 09/08/18 0641 09/08/18 0641 Results 24hrs Laboratory Tests Test 09/07/18 15:45 09/08/18 06:41 Urine Color TRACIE Urine Clarity SLIGHTLY CLOUDY A Urine pH 5.0 Urine Specific [place] 1.049 H Urine Ketones NEGATIVE Urine Nitrite NEGATIVE Urine Bilirubin NEGATIVE Urine Urobilinogen NEGATIVE Urine Leukocyte Esterase TRACE A Urine Microscopic RBC 16 H Urine Microscopic WBC 8 H Urine Squamous Epithelial Cells FEW Urine Bacteria FEW A Urine Mucus FEW A Urine Hemoglobin 1+ H Urine Random Creatinine 125.16 Urine Random Sodium 84 Urine Glucose NEGATIVE Urine Total Protein 30.0 H White Blood Count 6.3 Red Blood Count 4.30 Hemoglobin 11.2 L Hematocrit 36.7 L Mean Corpuscular Volume 85.3 Mean Corpuscular Hemoglobin 26.0 L Mean Corpuscular Hemoglobin Concent 30.5 L Red Cell Distribution Width 15.3 H Platelet Count 272 Mean Platelet Volume 9.3 Immature Granulocytes % 0.200 Neutrophils % 71.0 Lymphocytes % 18.6 Monocytes % 8.3 Eosinophils % 1.6 Basophils % 0.3 Nucleated Red Blood Cells % 0.0 Immature Granulocytes # 0.010 Neutrophils # 4.5 Lymphocytes # 1.2 Monocytes # 0.5 Eosinophils # 0.1 Basophils # 0.0 Nucleated Red Blood Cells # 0.0 Sodium Level 140 Potassium Level 4.4 Chloride Level 106 Carbon Dioxide Level 19 L Anion Gap 15 H Blood Urea Nitrogen 28 H Creatinine 1.07 H Est Glomerular Filtrat Rate mL/min Glucose Level 84 Calcium Level 8.8 Phosphorus Level 4.1 Magnesium Level 2.0 Exam/Review of Systems Vital Signs Vitals Vital Signs Date Temp Pulse Resp B/P (MAP) Pulse Ox O2 O2 Flow FiO2 Time Delivery Rate 09/08/18 97.7 75 20 164/76 98 Room Air 08:27 (105) 09/07/18 3.0 00:45 Intake and Output 09/07/18 09/07/18 09/08/18 1515:00 23:00 07:00 IntakeIntake Total 550 ml 1340 ml 525 ml BalanceBalance 550 ml 1340 ml 525 ml Medications Medications Current Medications IV Flush (NS 3 ml) 3 ml PER PROTOCOL IV ; Start 09/06/18 at 23:00 Ondansetron HCl (Zofran Inj) 4 mg Q6H PRN IV NAUSEA AND/OR VOMITING; Start 09/06/18 at 23:00 Acetaminophen (Tylenol Tab) 650 mg Q6H PRN PO PAIN LEVEL 1-3 OR FEVER Last administered on 09/08/18at 03:41; Admin Dose 650 MG; Start 09/06/18 at 23:00 Heparin Sodium (Porcine) (Heparin (5000 Units/1ml)) 5,000 unit Q8 SC Last administered on 09/08/18at 05:10; Admin Dose 5,000 UNIT; Start 09/07/18 at 07:00 Methimazole (Tapazole) 5 mg DAILY PO Last administered on 09/08/18at 09:41; Admin Dose 5 MG; Start 09/07/18 at 09:00 Docusate Sodium (Colace) 100 mg BID PO ; Start 09/07/18 at 21:00 Duloxetine HCl (Cymbalta) 60 mg DAILY PO Last administered on 09/08/18at 09:40; Admin Dose 60 MG; Start 09/08/18 at 09:00 Senna (Senokot) 2 tab DAILY PRN PO CONSTIPATION; Start 09/07/18 at 11:30 SHANKAR CORREA NP Sep 08, 2018 12:51
[2018-09-08 15:04] VITALS: BP 153/68; PULSE 74; RESP 18
--- NOTE | 2018-09-08 19:46 | NUR ---
EOSS: Skin assessed, no new wounds, R buttocks has two allevyns in place, no worsening in condition. Protective allevyn placed on sacrum. Patient encouraged to move in bed and turn q2, pillow provided to assist with turns. Pt denied pain or nausea during shift. IV fluids stopped. Pt remains incontinent, but was changed whenever chux was soiled. Pt encouraged to ambulate with assistance of RIP MACHINE OPERATOR. SCDs placed. BP elevated in 150-160s during shift, [facility] aware, no new orders. Call light within reach, bed alarm on. Pt denies further needs at this time.
[2018-09-08 20:00] VITALS: BP 145/67; PULSE 73; RESP 18
[2018-09-09 02:00] VITALS: BP 140/60; PULSE 75; RESP 18
--- NOTE | 2018-09-09 06:22 | NUR ---
1915 Pt received aaox4 vital signs stable. Pt oriented to security shift manager nurse and [facility] safety protocol including hourly rounding and an active bed alarm. Pt verbalized understanding. Pt denies further needs at this time. 2100 Scheduled medications administered w/o difficulty. Bed bath given by RN and ALLEY CLEANER. Pt denied pain at this time. 0000 Pt resting comfortably in bed, eyes closed, respirations regular and even. 0600 No significant changes noted throughout the night. Pt changed by ALLEY CLEANER episode of diarrhea x1 occured. Pt changed and kept clean and dry. Nursing will continue to monitor and endorse to morning shift to ensure pt safety and continuity of care.
[2018-09-09] MEDS: HEPARIN 5,000 UNIT/1 ML VIAL SC SCH ×2 (07:02→13:53)
[2018-09-09 08:31] VITALS: BP 176/77; PULSE 95; RESP 18
[2018-09-09] MEDS: DOCUSATE SODIUM 100 MG CAP PO SCH (08:42)
[2018-09-09] MEDS: DULOXETINE 30 MG CAP DR PO SCH (08:43)
[2018-09-09] MEDS ORDERED: AMLODIPINE 5 MG TAB PO SCH (09:00)
--- NOTE | 2018-09-09 09:02 | NUR ---
Wound Care Consult: This is a 72-year-old female with a history of, hyperlipidemia, thyroid disease status post spine surgery April 2017 presented to the ED by ambulance for evaluation of abdominal pain. Patient states that after eating sushi the night before admission that her sister brought over she developed crampy, generalized, abdominal pain and multiple episodes of nonbloody non-mucoid diarrhea. Of note patient was to be discharged from the emergency department however she was noted to be confused and a CT scan of the head was ordered which did not show any acute normality's. Patient at the bedside is alert and oriented x3. Wound care team consulted for wounds present on admission Mid spine (Thoracic area) surgical scar. Intact and clean. Keep clean and dry Bilateral heels, intact and clean Left ischial (identified by unit RN as left inner buttocks) healing pressure injury stage 2. 3cm x 2cm. Skin intact and no drainage noted. Keep area clean and dry, apply foam border dressing daily and as needed. Left gluteal area (edge of posterior iliac crest) healing pressure injury stage 2 with surrounding discoloration vs deep tissue injury. 2cm x 2.5cm. Wound bed with healing fibrous tissue (pink) color. Wound edge with noted Discoloration vs DTI. Periwound intact. No drainage, no odor. Note: Patient with noted urinary incontinence. Treatment recommendation include, cleanse area with normal saline, pat dry, apply Venelex ointment and cover with foam border dressing BID and as needed. Incontinent care as needed Encourage repositioning every 2 hours per department protocol Elevate Heels with pillows to off-load WOPORSHA coordinated with Vanda, unit RN regarding assessment and treatment recommendation. Nicho Cordero, ASMITA MSN WOCN CM
[2018-09-09] MEDS: METHIMAZOLE 5 MG TAB PO SCH (10:30)
[2018-09-09] MEDS ORDERED: AMLODIPINE 2.5 MG TAB PO SCH (10:30)
--- NOTE | 2018-09-09 10:49 | NUR ---
PT EVAL Therapy day number 1 Evaluation Start Time 09:43 Evaluation Total Time 0 min Subjective Denies pain Pain Scale NUMERIC Pain Intensity 0 (0-10) Patient Stated Goal for Pain Relief 0 (0-10) Pain Level Comment denies pain Pre Treatment Vital Signs Stable Yes - 172/79, 78bpm, 97% RA Exercise Assessment Label Bilat Lower Extremity Exercise Type Active ROM Additional Exercise Comments supine APs, heel slides, SLR Supine to Sit Minimum Assist Transfer Sit to Stand Ability Minimum Assist Bed Mobility Sit to Supine Minimum Assist Bed Transfer Ability Minimum Assist Chair Transfer Ability Minimum Assist Sitting Tolerance 15 min Additional Mobility Comments log-roll Patient uses wheelchair Yes Gait Assist Levels Contact Guard Assist Assistive Devices Front Wheel Walker Ambulation Distance 25 feet Additional Gait Comments slow boom, narrow ROHINI, B LE rotated to L, forward flexed Weight Bearing Assessment Label Bilat Lower Extremity Weight Bearing Status Full Weight Bearing Additional Stairs Assist Comments N/A Static Sitting Balance Good Dynamic Sitting Balance Fair plus Standing Static Balance Fair plus Dynamic Standing Balance Fair Additional Balance Assessments Comments with FWW Safety Judgement Fair Activity Tolerance Fair Post Treatment Pain Intensity 0 0-10 Quality Indicators SOB Upon Exertion Variance Documentation SEE PT EVAL PT Technical Record Comment PT EVAL Pt is a 72 yo F with PMH of HTN, dyslipidemia, hyperthyroidism, scoliosis s/p spine sx in 2017, who presented to ER with sudden onset of nausea/vomitting/diarrhea after sushi dinner. Pt admitted for acute gastroenteritis, KT, and confusion. Head CT (-) for acute findings. CT of pelvis suggests ileus. Pt received in 2E, med/surg. Precautions: Fall precautions, spinal precautions, incontinence (per pt) PLOF: Pt lives alone in 2SH with 0STE. Pt reports she has a chair lift to assist pt to 2nd floor bedroom. Ambulatory with assistance and use of FWW for short distances, uses manual wheelchair for longer distances. Pt has 2 caregivers for 7 hours a day. Friends/neighbors assist pt with iADLs. CLOF: ASMITA Dc cleared pt for PT evaluation. Pt received in bed, vitals assessed and stable, AOx4. Pt educated in purpose of PT evaluation. B UE/LE ROM assessment noted limited L hip/knee flexion due to pain/weakness; pt reports L LE weakness following spinal sx. Bed mobility, transfer, and gait assessment as above. Noted BP in sitting 150/72, pt asymptomatic. Following gait pt demonstrated mild SOB, reported nausea. Pt returned to bed, all needs in reach, bed alarm activated. RN notified of pt's status. Recommendation: Pt demonstrates mild balance deficits with amb, generalized weakness, as well as low activity tolerance presenting with mild SOB upon exertion following amb of 25' with FWW. Noted gait with narrow ROHINI and L LE ER with R LE IR, possibly due to hx of scoliosis. Pt will benefit from additional skilled PT services during hospital stay to improve overall endurance and further strengthening. D/c recommendation home with caregiver SPV/assistance and HHPT vs post-acute setting for further therapies. Pt already owns FWW, manual w/c. Plan: Continue c PT POC
--- NOTE | 2018-09-09 10:51 | PDOCDIS ---
Discharge Instructions CONDITION [id number] Patient Condition: [id number] Stable HOME CARE INSTRUCTIONS: [id number] Diet Instructions: [id number] Regular FOLLOW UP/APPOINTMENTS Follow-up Plan Follow-up with primary care physician in 1 week SHAKNAR CORREA NP Sep 09, 2018 10:51
[2018-09-09] MEDS ORDERED: AMLO2.5T78 PO (10:52)
--- NOTE | 2018-09-09 11:04 | DS ---
Date/Time of Note Date/Time of Note DATE: 09/09/18 TIME: 10:57 Discharge Summary Admission/Discharge Info Admit Date/Time Sep 08, 2018 at 11:32 Discharge Date/Time Discharge Diagnosis 1. Status post Acute gastroenteritis, likely food/seafood intolerance. 2. Possible ileus in light of #1. Resolved. 3. Status post Acute kidney injury, multifactorial with ATN/hemodynamics. 4. Hyperthyroidism 5. Hypertension 6. Dyslipidemia 7. Depressive disorders. Patient Condition: Stable Procedures 09/06/2018. CT abdomen and pelvis with contrast. IMPRESSION: Air-fluid levels within the small and large bowel suggestive of an ileus. There is no bowel obstruction. Scattered diverticuli within the descending and sigmoid colon without evidence of diverticulitis. Cholelithiasis. Mild bibasilar atelectasis. Mild cardiomegaly. Small hiatal hernia. Mild vascular calcifications reflective of atherosclerosis. Old fracture of the superior endplate of L2 with severe posterior displacement and marked lordotic deformity. There are postsurgical changes with posterior stabilization with bilateral rods and pedicle screws. Mild deformity of T12, age indeterminate. 09/07/2018. Renal ultrasound IMPRESSION: Normal sonographic appearance of the bilateral kidneys aside from a 2.1 cm cyst at the upper pole the right kidney. No hydronephrosis. Hospital Course 72-year-old female with a past medical history of hypertension, dyslipidemia, hyperthyroidism, presented to the emergency room with sudden onset of nausea/vomiting/diarrhea after she had a sushi dinner. Patient was noted with acute gastroenteritis with possible ileus likely from food intolerance. She was treated with bowel rest, IV fluids. Patient symptoms resolved. She was then started on a diet and was able to tolerate it. Patient was also noted with acute kidney injury multifactorial with acute tubular necrosis/hemodynamic/losartan effect. Patient was continued on home medication for underlying comorbidities. She was not able to tolerate losartan secondary to acute kidney injury as such, her antihypertensive was changed to low-dose calcium channel antony which she was able to tolerate. She was then evaluated by physical therapist who recommended home health PT. Patient is medically stable for discharge with outpatient follow-up. She did not have any further symptoms. Approximately 60 m spent on coordinating the discharge on this patient. Patient was seen in the management Dr. Richard. Home Meds Active Scripts Amlodipine Besylate* (Amlodipine Besylate*) 2.5 Mg Tablet, 2.5 MG PO DAILY, #30 TAB Prov:SHANKAR CORREA NP 09/09/18 Ondansetron (Ondansetron Odt) 4 Mg Tab.rapdis, 4 MG PO Q6H PRN for NAUSEA AND/OR VOMITING, #10 TAB Prov:EMILY OSPINA MD 09/06/18 Reported Medications Doxycycline Hyclate* (Doxycycline Hyclate*) 100 Mg Tablet.dr, 100 MG PO DAILY, TAB 09/06/18 Levocarnitine* (Levocarnitine*) 330 Mg Tablet, 330 MG PO BID, TAB 09/06/18 Docusate Sodium* (Colace*) 100 Mg Capsule, 100 MG PO BID, #60 CAP 09/06/18 Vitamin B Complex* (Vitamin B Complex*) 1 Each Tablet, 1 TAB PO DAILY, TAB 09/06/18 Acetaminophen* (Acetaminophen*) 500 MG Extra Strength Tablet, 500 MG PO Q4H PRN for PAIN AND OR ELEVATED TEMP, TAB 09/06/18 Sennosides* (Senna Lax*) 8.6 Mg Tablet, 2 TAB PO DAILY PRN for CONSTIPATION, TAB 09/06/18 Fluticasone Propionate* (Fluticasone Propionate* Nasal) 50 Mcg/[place] - 16 Gm [place].susp, 1 SPRAY NASAL DAILY, #1 BOTTLE TO EACH NOSTRIL 09/06/18 Folic Acid* (Folic Acid*) 1 Mg Tablet, 1 MG PO DAILY, TAB 09/06/18 Simvastatin (Simvastatin) 10 Mg Tablet, 10 MG PO QHS, #30 TAB 09/06/18 Omeprazole* (Omeprazole*) 40 Mg Capsule.dr, 40 MG PO AC BREAKFAST, #30 CAP 09/06/18 Methimazole* (Methimazole*) 5 Mg Tablet, 5 MG PO DAILY, TAB 09/06/18 Duloxetine Hcl* (Duloxetine Hcl*) 60 Mg Capsule.dr, 60 MG PO DAILY, #30 CAP 09/06/18 Losartan Potassium* (Losartan Potassium*) 25 Mg Tablet, 25 MG PO DAILY, TAB 09/06/18 Gabapentin* (Gabapentin*) 100 Mg Capsule, 200 MG PO BID, #180 CAP 09/06/18 Ubidecarenone* (Co Q-10*) 100 Mg Capsule, 100 MG PO DAILY, CAP 09/06/18 Midodrine* (Midodrine*) 5 Mg Tablet, 5 MG PO TID, TAB 09/06/18 Follow-up Plan Follow-up with primary care physician in 1 week Primary Care Provider Not On Staff Doctor Pending Labs Laboratory Tests Test 09/09/18 05:25 White Blood Count 5.7 10^3/ul (4.8-10.8) Red Blood Count 4.45 10^6/ul (4.20-5.40) Hemoglobin 11.5 g/dl (12.0-16.0) Hematocrit 36.9 % (37.0-47.0) Mean Corpuscular Volume 82.9 fl (82.0-101.0) Mean Corpuscular Hemoglobin 25.8 pg (29.0-33.0) Mean Corpuscular Hemoglobin Concent 31.2 g/dl (32.0-37.0) Red Cell Distribution Width 14.7 % (11.5-14.5) Platelet Count 289 10^3/UL (140-415) Mean Platelet Volume 9.0 fl (7.4-10.4) Immature Granulocytes % 0.400 % (0.001-0.429) Neutrophils % 72.9 % (39.0-77.0) Lymphocytes % 17.5 % (15.0-51.0) Monocytes % 7.6 % (0.0-11.0) Eosinophils % 1.4 % (0.0-7.0) Basophils % 0.2 % (0.0-2.0) Nucleated Red Blood Cells % 0.0 /100WBC (0.0-0.0) Immature Granulocytes # 0.020 10^3/ul (0.0-0.031) Neutrophils # 4.1 10^3/ul (1.6-7.5) Lymphocytes # 1.0 10^3/ul (0.8-2.9) Monocytes # 0.4 10^3/ul (0.3-0.9) Eosinophils # 0.1 10^3/ul (0.0-0.5) Basophils # 0.0 10^3/ul (0.0-0.1) Nucleated Red Blood Cells # 0.0 10^3/ul (0.0-0.0) Sodium Level 142 mmol/L (135-144) Potassium Level 4.3 mmol/L (3.5-5.1) Chloride Level 106 mmol/L (97-110) Carbon Dioxide Level 22 mmol/L (21-31) Anion Gap 14 (5-13) Blood Urea Nitrogen 20 mg/dl (7-20) Creatinine 0.91 mg/dl (0.44-1.00) Est Glomerular Filtrat Rate mL/min mL/min (>60) Glucose Level 84 mg/dl (70-220) Calcium Level 9.3 mg/dl (8.4-10.2) Phosphorus Level 3.6 mg/dl (2.5-4.9) Magnesium Level 2.0 mg/dl (1.7-2.5) SHANKAR CORREA NP Sep 09, 2018 11:03
--- NOTE | 2018-09-09 11:26 | PN ---
DATE: 09/09/2018 SUBJECTIVE: The patient is stable. No fevers, chills, nausea, vomiting. OBJECTIVE: VITAL SIGNS: Blood pressure is 176/77, pulse 95, respiration 18, temperature 98.3. HEENT: Head is normocephalic. NECK: Supple. HEART: Regular rate. LUNGS: Show diminished breath sounds at the base. ABDOMEN: Soft, nontender to palpation without rebound or guarding. EXTREMITIES: Negative for clubbing, cyanosis. No edema. DERMATOLOGIC: No rashes. MUSCULOSKELETAL: No joint effusion. NEUROLOGIC: No change in exam. MEDICATIONS: Have been reviewed. LABORATORY DATA: Show sodium 142, BUN 20, creatinine 0.91. CBC was reviewed. ASSESSMENT AND PLAN: 1. Nonoliguric acute kidney injury with unknown baseline creatinine. Etiology is secondary to hemod ynamics, tubular injury. The patient's renal function has improved. At this point, continue current treatment plan, supportive care, renally dose all meds. 2. Mineral bone disorder. Monitor calcium and phosphorus levels. 3. Ileus, improving. Continue to advance diet. Follow up with gastroenterology. 4. Urinary tract infection. Continue antibiotic regimen. 5. Hypothyroidism. Continue Synthroid. 6. Acute encephalopathy. Etiology is toxic metabolic. 7. Hypertension. The patient's blood pressure remains elevated. Continue current blood pressure me dications. We will consider adding a calcium channel antony. Dictated By: NITIN DOUGLAS/NTS Conf#: [id number] DID#: [id number] CC: ALINE WEBSTER MD;*End*
--- NOTE | 2018-09-09 11:45 | NUR ---
PATIENT CLEARED FOR DC HOME TODAY.PATIENT WAS INFORMED AND WILL FFUP WITH CM ABOUT HH PT ARRANGEMENTS.
[2018-09-09] MEDS ORDERED: BALSAM PERU/CASTOR OIL 60 GM TUBE TOP SCH (13:00)
--- NOTE | 2018-09-09 13:00 | NUR ---
TOLERATED SOFT DIET.
[2018-09-09 13:45] VITALS: BP 150/70; PULSE 90; RESP 20
--- NOTE | 2018-09-09 14:13 | NUR ---
CM CONSULT FOR PT: [facility] FOR PT: [phone] FAXED CLINICAL INFO AND ORDER TO [phone]. Addendum: 09/09/18 at 1415 by NILE YEAGER CM Amended: Links added.
--- NOTE | 2018-09-09 14:30 | NUR ---
DC INSTRUCTIONS GIVEN TO PATIENT .INSTRUCTED ON DIET.ACTIVITY,HOME MEDS,SAFETY AND PRESSURE SORE CAR TREATMENT.PT HAS EXISTING HOME HEALTH AND WILL RESUME CARE AND WILL PROVIDE HH PT ORDERED.
== END 2018-09-09 14:44 | disposition home health service (06) | DRG 391 ==
LOC: E/R 15:44 → 6WM 22:48 → PP2 09-07 08:07 → OBSVTOIN 09-08 11:32
PROVIDERS: ADMIT Family Medicine; ATTEND Family Medicine
DX: K52.29 Other allergic and dietetic gastroenteritis and colitis (principal); G92 Toxic encephalopathy; N17.0 Acute kidney failure with tubular necrosis; K56.7 Ileus, unspecified; N39.0 Urinary tract infection, site not specified; I10 Essential (primary) hypertension; E78.5 Hyperlipidemia, unspecified; Z91.013 Allergy to seafood; F32.9 Major depressive disorder, single episode, unspecified; E03.9 Hypothyroidism, unspecified
CPT/HCPCS: 36415; 70450; 74018; 74177; 76775; 80048; 80053; 80061; 81001; 81003; 82043; 82270; 83036; 83690; 83735; 84100; 84155; 84300; 84436; 84443; 84479; 84481; 84484; 85025; 87045; 87177; 87205; 90686; 93005; 96374; 96375; 97162; 99217; G0378; J0696; J1644; J1885; J2405; J3475; J7030; J7040; Q9967

== ENCOUNTER 2019-02-06 19:58 | Inpatient (IN) | payer BC, MEDICARE ==
[~2019-02-06] VITALS: Ht 165.1 cm; Wt 71.0 kg
[~2019-02-06 19:58] MED LIST: ACET-141 PO; AMLO2.5T78 PO; DOCU-144 PO; DULO60CA59 PO; FLUT16SP17 NASAL; FOLI-49 PO; LEVO330T PO; METH-493 PO; MIDO5TAB PO; OMEP40CA6 PO; ONDA4TAB14 PO; SENN-120 PO; UBID100C44 PO; VIT1TABL46 PO; ZOC10 PO
[2019-02-06 20:10] VITALS: Ht 165.1 cm; Wt 71.0 kg
--- NOTE | 2019-02-06 20:15 | ERD ---
ER Documentation Chief Complaint Chief Complaint HPI 73-year-old woman brought in by EMS for syncopal episode, she complains of mild left knee pain but denies head or neck injury and states she is dehydrated. She denies recent fevers or chills, no chest pain or shortness of breath, no vomiting or diarrhea, no seizure activity. Patient was transported here by EMS without further complications ROS All systems reviewed and are negative except as per history of present illness. Medications Home Meds Active Scripts Amlodipine Besylate* (Amlodipine Besylate*) 2.5 Mg Tablet, 2.5 MG PO DAILY, #30 TAB Prov:SHANKAR CORREA NP 09/09/18 Ondansetron (Ondansetron Odt) 4 Mg Tab.rapdis, 4 MG PO Q6H PRN for NAUSEA AND/OR VOMITING, #10 TAB Prov:EMILY OSPINA MD 09/06/18 Reported Medications Levocarnitine* (Levocarnitine*) 330 Mg Tablet, 330 MG PO BID, TAB 09/06/18 Docusate Sodium* (Colace*) 100 Mg Capsule, 100 MG PO BID, #60 CAP 09/06/18 Vitamin B Complex* (Vitamin B Complex*) 1 Each Tablet, 1 TAB PO DAILY, TAB 09/06/18 Acetaminophen* (Acetaminophen*) 500 MG Extra Strength Tablet, 500 MG PO Q4H PRN for PAIN AND OR ELEVATED TEMP, TAB 09/06/18 Sennosides* (Senna Lax*) 8.6 Mg Tablet, 2 TAB PO DAILY PRN for CONSTIPATION, TAB 09/06/18 Fluticasone Propionate* (Fluticasone Propionate* Nasal) 50 Mcg/[place] - 16 Gm [place].susp, 1 SPRAY NASAL DAILY, #1 BOTTLE TO EACH NOSTRIL 09/06/18 Folic Acid* (Folic Acid*) 1 Mg Tablet, 1 MG PO DAILY, TAB 09/06/18 Simvastatin (Simvastatin) 10 Mg Tablet, 10 MG PO QHS, #30 TAB 09/06/18 Omeprazole* (Omeprazole*) 40 Mg Capsule.dr, 40 MG PO AC BREAKFAST, #30 CAP 09/06/18 Methimazole* (Methimazole*) 5 Mg Tablet, 5 MG PO DAILY, TAB 09/06/18 Duloxetine Hcl* (Duloxetine Hcl*) 60 Mg Capsule.dr, 60 MG PO DAILY, #30 CAP 09/06/18 Ubidecarenone* (Co Q-10*) 100 Mg Capsule, 100 MG PO DAILY, CAP 09/06/18 Midodrine* (Midodrine*) 5 Mg Tablet, 5 MG PO TID, TAB 09/06/18 Allergies Allergies: Coded Allergies: hydromorphone (Verified Allergy, Severe, 09/06/18) PMhx/Soc Hypertension, thyroid disease, hyperlipidemia, history of anxiety, history of UTIs, history of spinal surgery History of Surgery: Yes Anesthesia Reaction: No Hx Neurological Disorder: No Hx Respiratory Disorders: No Hx Cardiac Disorders: Yes Hx Psychiatric Problems: No (Hypertension) Hx Miscellaneous Medical Probl: Yes (HTN, dyslipidemia, hyperthyroidism, scoliosis s/p spine sx 2016) Hx Alcohol Use: No Hx Substance Use: No Hx Tobacco Use: No FmHx Family History: No diabetes Physical Exam Vitals Vital Signs Date Temp Pulse Resp B/P (MAP) Pulse Ox O2 O2 Flow FiO2 Time Delivery Rate 02/06/19 98.2 93 20 164/81 98 20:10 (108) Physical Exam Const: Well-developed well-nourished woman, dehydrated, afebrile HEENT: Dry mucous membranes, no cervical spine deformity or tenderness, pink conjunctive a Resp: Clear to auscultation bilaterally Cardio: Regular rate and rhythm, no murmurs Abd: Soft, protuberant, distended, nontender, no masses or rigidity Skin: No petechiae or rashes, mild soft tissue contusion to the left anterior tibia just inferior to the patella minimally tender without ecchymosis or hematoma Ext: No cyanosis, or edema, distal pulses equal bilateral, calves symmetrical Neur: Awake and alert x3, no focal deficits or facial asymmetry, pupils equal round reactive to light Psych: Normal Mood and Affect Result Diagram: 02/06/19203302/06/192033 Results 24 hrs Laboratory Tests Test 02/06/19 20:34 02/06/19 21:10 White Blood Count 8.0 10^3/ul Red Blood Count 4.49 10^6/ul Hemoglobin 11.6 g/dl Hematocrit 39.0 % Mean Corpuscular Volume 86.9 fl Mean Corpuscular Hemoglobin 25.8 pg Mean Corpuscular Hemoglobin Concent 29.7 g/dl Red Cell Distribution Width 15.0 % Platelet Count 251 10^3/UL Mean Platelet Volume 9.8 fl Immature Granulocytes % 0.500 % Neutrophils % 77.9 % Lymphocytes % 12.9 % Monocytes % 6.2 % Eosinophils % 2.1 % Basophils % 0.4 % Nucleated Red Blood Cells % 0.0 /100WBC Immature Granulocytes # 0.040 10^3/ul Neutrophils # 6.2 10^3/ul Lymphocytes # 1.0 10^3/ul Monocytes # 0.5 10^3/ul Eosinophils # 0.2 10^3/ul Basophils # 0.0 10^3/ul Nucleated Red Blood Cells # 0.0 10^3/ul Sodium Level 139 mmol/L Potassium Level 4.4 mmol/L Chloride Level 102 mmol/L Carbon Dioxide Level 28 mmol/L Anion Gap 9 Blood Urea Nitrogen 28 mg/dl Creatinine 0.92 mg/dl Est Glomerular Filtrat Rate mL/min mL/min Glucose Level 162 mg/dl Calcium Level 9.2 mg/dl Total Bilirubin 0.2 mg/dl Direct Bilirubin 0.00 mg/dl Indirect Bilirubin 0.2 mg/dl Aspartate Amino Transf (AST/SGOT) 30 IU/L Alanine Aminotransferase (ALT/SGPT) 25 IU/L Alkaline Phosphatase 167 IU/L Troponin I < 0.012 ng/ml Total Protein 8.5 g/dl Albumin 4.1 g/dl Globulin 4.40 g/dl Albumin/Globulin Ratio 0.93 Lipase 167 U/L Urine Color TRACIE Urine Clarity CLOUDY Urine pH 5.0 Urine Specific Points 1.018 Urine Ketones NEGATIVE mg/dL Urine Nitrite POSITIVE mg/dL Urine Bilirubin NEGATIVE mg/dL Urine Urobilinogen NEGATIVE mg/dL Urine Leukocyte Esterase 1+ Mor/ul Urine Microscopic RBC 5 /HPF Urine Microscopic WBC 14 /HPF Urine Squamous Epithelial Cells FEW /HPF Urine Bacteria FEW /HPF Urine Hemoglobin NEGATIVE mg/dL Urine Glucose NEGATIVE mg/dL Urine Total Protein NEGATIVE mg/dl Current Medications Medications Dose Sig/Rosy Start Time Status Last (Trade) Ordered Route PRN Stop Time Admin Dose Reason Admin Sodium 1,000 ml @ Q1H STAT 02/06/19 DC 02/06/19 Chloride 1,000 mls/hr IV 20:18 20:40 02/06/19 21:17 Lactated 1,000 ml @ Q1H STAT 02/06/19 DC 02/06/19 Ringer's 1,000 mls/hr IV 20:18 20:39 02/06/19 21:17 Ceftriaxone 50 ml @ ONCE ONCE 02/06/19 Sodium 100 mls/hr IVPB 22:00 02/06/19 22:29 IV Flush 3 ml PER 02/06/19 (NS 3 ml) PROTOCOL IV 22:00 Ondansetron 4 mg Q6H PRN 02/06/19 HCl (Zofran IV 22:00 Inj) NAUSEA/VOMITI NG 650 mg Q6H PRN 02/06/19 Acetaminophen PO .PAIN 1-3 22:00 (Tylenol OR TEMP Tab) Docusate 100 mg Q12H PRN 02/06/19 Sodium PO 22:00 (Colace) .CONSTIPATION Bisacodyl 5 mg DAILY PRN 02/06/19 (Dulcolax) PO 22:00 .CONSTIPATION Ceftriaxone 50 ml @ Q24H IVPB 02/07/19 Sodium 100 mls/hr 22:00 Procedures/MDM IV line was established patient was placed on cardiac technician rhythm strip re vealed a sinus rhythm at about 80 bpm with upright P and T waves. Patient was afebrile One AP view of the chest performed, read by me reveals no acute infiltrates, normal mediastinum, sharp costophrenic and cardiac borders, no air under the diaphragm. Otherwise unremarkable chest x-ray. X-ray Pelvis 1V Interpreted by me: Bones: No fracture Joints: Osteoarthritic changes Foreign body: Surgical hardware and screws noted in the lumbar spine X-ray left Knee 3V Interpreted by me: Bones: No fracture Joints: Tricompartmental osteoarthritis Foreign body: None I administered 2 L of IV crystalloid for dehydration EKG performed, read by me revealed a normal sinus rhythm at 91 bpm, normal axis, narrow QRS complex, no concerning ST elevations or depressions noted CBC is unremarkable, electrolytes revealed dehydration with a BUN/creatinine of 28/0.9, liver function test normal, troponin negative, urine analysis positive for infection I administered ceftriaxone 1 g IV for UTI. Patient will be admitted to telemetry setting for continued IV antibiotics and rehydration Departure Diagnosis: Primary Impression: Syncope Syncope type: unspecified Qualified Codes: R55 - Syncope and collapse Additional Impressions: Acute dehydration Acute UTI Condition: LINDSEY Hope MD February 06, 2019 20:15
[2019-02-06] MEDS ORDERED: LACTATED RINGER'S 1,000 ML IV STA (20:18)
[2019-02-06] MEDS ORDERED: SOD CHLORIDE 0.9% 1,000 ML IV STA (20:18)
[2019-02-06] MEDS ORDERED: ONDANSETRON 4 MG INJ IV PRN (22:00)
[2019-02-06] MEDS ORDERED: NACL 0.9% 3 ML SYG IV SCH (22:00)
[2019-02-06] MEDS ORDERED: ACETAMINOPHEN 325 MG TAB PO PRN (22:00)
[2019-02-06] MEDS ORDERED: DOCUSATE SODIUM 100 MG CAP PO PRN (22:00)
[2019-02-06] MEDS ORDERED: BISACODYL (EC) 5 MG TAB PO PRN (22:00)
[2019-02-06] MEDS ORDERED: CEFTRIAXONE 1 GM/50 ML (PMX) 50 ML IVPB ONE (22:00)
[2019-02-06] MEDS ORDERED: hydrALAzine 20 MG INJ IV PRN (23:00)
[2019-02-07] VITALS (10 sets, daily range): BP systolic 86–158; BP diastolic 53–95; PULSE 72–104; RESP 13–23
[2019-02-07] MEDS ORDERED: LOSARTAN 25 MG TAB PO ONE (00:30)
[2019-02-07] MEDS ORDERED: SOD CHLORIDE 0.9% 1,000 ML IV SCH (01:30)
[2019-02-07] MEDS ORDERED: DEXAMETHASONE 4 MG/ML 1 ML INJ IV ONE (01:30)
[2019-02-07] MEDS ORDERED: PANTOPRAZOLE 40 MG INJ IV ONE (01:30)
[2019-02-07] MEDS ORDERED: LOSA25TA12 PO (01:49)
[2019-02-07] MEDS ORDERED: CARV6.2579 PO (01:49)
--- NOTE | 2019-02-07 04:29 | HP ---
Date/Time of Note Date/Time of Note DATE: 02/07/19 TIME: : Assessment/Plan VTE Prophylaxis SCD applied (from Nsg): Yes Pharmacological prophylaxis: NA/contraindicated Pharm contraindication: low risk/ambulating Lines/Catheters IV Catheter Type (from Nrsg): Saline Lock Assessment/Plan Hospital Course This is a 73-year-old female being admitted to the ICU floor for: #1 subdural hematoma: Status post fall, patient also did present with elevated blood pressures. CT of the study showed: CT study showed: Acute hyperdense subdural hematoma alongside the right side of the falx measures up to 0.4 cm. In addition, there is a small intermediate attenuation subdural hematoma over the right vertex versus a focal dural thickening measuring 0.2 cm. Mild acute convexity subarachnoid hemorrhage at the left vertex and over the anterior right frontal lobe. -Monitor closely in the ICU -Maintain blood pressure less than 160 systolic, PRN hydralazine, will also initiate patient's home blood pressure medications and titrate -Elevate the head of the bed -Avoid any anticoagulation, antiplatelets -Repeat CT scan in the a.m. -Neurosurgery has been consulted by the emergency department #2 neck pain: CT of the neck: Negative for midline shift.Negative for evidence of acute fracture or traumatic subluxation of cervical spine. Status post discectomy and anterior interbody fusion with incorporated hardware at C5-6 and C6-7. There are bone exostoses arising from the dorsal C6 and C7 vertebral bodies that result in severe central canal stenosis at C7 where there is potential compression of the spinal cord. Reversal of the normal cervical lordosis with a kyphotic deformity and curvature convex left. There is multilevel severe right facet joint arthritis with bony hypertrophy and fusion of the facet joints as described. -Monitor closely in the ICU. -The patient does not display any acute neurological deficits, however potential compression of spinal cord is concerning. I will give the patient a dose of Decadron IV. Neurosurgery has already been consulted by the emergency department. #3 syncope: With witnessed loss of consciousness. Possibly multifactorial secondary to underlying urinary tract infection, hypertension versus hypotensio n. Patient did present to the emergency department with elevated blood pressures. Will check an echocardiogram, carotid Dopplers. I will hold off on doing orthostatics at the current time given #1 and #2 once cleared by neurosurgery we can perform orthostatics. #4 urinary tract infection: Ceftriaxone 1 g every 24 hours, urine culture #5 Hyperthyroidism: Patient is currently on methimazole. Will check TSH and thyroid studies. Resume methimazole. CT scan did show enlarged thyroid gland s uggestive of autoimmune thyroiditis. Will consult endocrinology. #6 Anxiety: Resume duloxetine as indicated #7 GERD: IV Protonix #8 Hypertension: Resume carvedilol, losartan given her currently elevated blood pressures with goal of less than 160 systolic #9 DVT GI prophylaxis: SCDs, Protonix Further treatment strategy will be implemented as per the clinical course. Greater than 45 minutes critical care time was spent on the care management this patient. Result Diagram: 02/07/1933802/07/19338 Results 24hrs Laboratory Tests Test 02/06/19 20:34 02/06/19 21:10 02/06/19 22:14 02/07/19 03:39 White Blood Count 8.0 # 7.5 Red Blood Count 4.49 3.97 L Hemoglobin 11.6 L 10.3 L Hematocrit 39.0 34.0 L Mean Corpuscular 86.9 85.6 Volume Mean Corpuscular 25.8 L 25.9 L Hemoglobin Mean Corpuscular 29.7 L 30.3 L Hemoglobin Concent Red Cell 15.0 H 14.8 H Distribution Width Platelet Count 251 246 Mean Platelet Volume 9.8 9.1 Immature 0.500 H 0.500 H Granulocytes % Neutrophils % 77.9 H 84.8 H Lymphocytes % 12.9 L 10.0 L Monocytes % 6.2 3.1 Eosinophils % 2.1 1.2 Basophils % 0.4 0.4 Nucleated Red Blood 0.0 0.0 Cells % Immature 0.040 H 0.040 H Granulocytes # Neutrophils # 6.2 6.4 Lymphocytes # 1.0 0.8 Monocytes # 0.5 0.2 L Eosinophils # 0.2 0.1 Basophils # 0.0 0.0 Nucleated Red Blood 0.0 0.0 Cells # Sodium Level 139 141 Potassium Level 4.4 4.5 Chloride Level 102 107 Carbon Dioxide Level 28 25 Anion Gap 9 9 Blood Urea Nitrogen 28 H 23 H Creatinine 0.92 0.86 Est Glomerular Filtrat Rate mL/min Glucose Level 162 131 Calcium Level 9.2 8.8 Total Bilirubin 0.2 0.2 Direct Bilirubin 0.00 0.00 Indirect Bilirubin 0.2 0.2 Aspartate Amino 30 24 Transf (AST/SGOT) Alanine 25 19 Aminotransferase (AL T/SGPT) Alkaline Phosphatase 167 H 158 H Troponin I < 0.012 < 0.012 < 0.012 Total Protein 8.5 H 7.8 Albumin 4.1 3.8 Globulin 4.40 H 4.00 H Albumin/Globulin 0.93 0.95 Ratio Lipase 167 Urine Color TRACIE Urine Clarity CLOUDY A Urine pH 5.0 Urine Specific 1.018 [place] Urine Ketones NEGATIVE Urine Nitrite POSITIVE A Urine Bilirubin NEGATIVE Urine Urobilinogen NEGATIVE Urine Leukocyte 1+ H Esterase Urine Microscopic 5 RBC Urine Microscopic 14 H WBC Urine Squamous FEW Epithelial Cells Urine Bacteria FEW A Urine Hemoglobin NEGATIVE Urine Glucose NEGATIVE Urine Total Protein NEGATIVE Creatine Kinase 155 139 Creatine Kinase 1.7 1.4 Index Creatinine Kinase MB 2.60 H 1.94 (Mass) Hemoglobin A1c 5.7 Magnesium Level 1.7 Triglycerides Level 206 H Cholesterol Level 145 LDL Cholesterol, 69 Calculated HDL Cholesterol 35 Cholesterol/HDL 4.1 Ratio Thyroid Stimulating Pending Hormone (TSH) HPI/ROS Admit Date/Time Admit Date/Time Hx of Present Illness Chief complaint: Fall, syncope This is a very pleasant 73-year-old female who was brought in today via EMS after she sustained a syncopal episode. She is accompanied today by her caregiver. Patient normally walks around with a walker. The caregiver reported that she saw the patient walking with her walker and then started to walk slowly and then she fell backwards and hit her head. She states that the patient did lose consciousness for short period of time. Patient at the current time appears to be back at her baseline. Patient does report that she does have some neck pain but she states that this is a chronic issue that she has dealt with for some time and she has had spinal surgery for this. She denies any numbness or tingling in her bilateral upper or lower extremities. She denies any urinary incontinence. Denies any saddle anesthesia. She does report that she does feel thirsty. During my examination in the emergency department after she reported to me that she did hit her head and lose consciousness. I did do a further neurological examination which again did not elicit any overt neurological deficits. She does have decreased strength in her bilateral lower extremities 4 out of 5 but she reports that this is chronic. She is able to wiggle her toes. However given the clinical picture I did order a CT of the brain without contrast as well as a CT of the cervical spine. CT study showed: Acute hyperdense subdural hematoma alongside the right side of the falx measures up to 0.4 cm. In addition, there is a small intermediate attenuation subdural hematoma over the right vertex versus a focal dural thickening measuring 0.2 cm. Mild acute convexity subarachnoid hemorrhage at the left vertex and over the anterior right frontal lobe. Negative for midline shift.Negative for evidence of acute fracture or traumatic subluxation of cervical spine. Status post discectomy and anterior interbody fusion with incorporated hardware at C5-6 and C6-7. There are bone exostoses arising from the dorsal C6 and C7 vertebral bodies that result in severe central canal stenosis at C7 where there is potential compression of the spinal cord. Reversal of the normal cervical lordosis with a kyphotic deformity and curvature convex left. There is multilevel severe right facet joint arthritis with bony hypertrophy and fusion of the facet joints as described. Allergies: Hydromorphone Medications: See MAR OBIE Const: As per HPI Eyes : No pain discharge or redness or change in visual acuity ENT: No pain, sore throat, congestion, congestion, dysphagia or discharge Respiratory: No shortness of breath, cough, sputum, wheezing, or pleuritic pain Cardiovascular: No chest pain, palpitation, PND, or edema GI : no change in appetite, abdominal pain, nausea, vomiting, diarrhea, constipation, or change in the color his stool Genitourinary: No dysuria, hematuria, flank pain , discharge or CVA tenderness Musculoskeletal: As per HPI Skin: No rash, bruising or hives Neuro: As per HPI Endocrine: No polyuria, polydipsia, temperature intolerance Psych: No hallucination, depression, anxiety or suicidal ideation PMH/Family/Social Past Medical History hyperlipidemia, hyperthyroidism, anxiety, GERD, hypertension, depression Medications Current Medications IV Flush (NS 3 ml) 3 ml PER PROTOCOL IV ; Start 02/06/19 at 22:00 Ondansetron HCl (Zofran Inj) 4 mg Q6H PRN IV NAUSEA/VOMITING; Start 02/06/19 at 22:00 Acetaminophen (Tylenol Tab) 650 mg Q6H PRN PO .PAIN 1-3 OR TEMP; Start 02/06/19 at 22:00 Docusate Sodium (Colace) 100 mg Q12H PRN PO .CONSTIPATION; Start 02/06/19 at 22:00 Bisacodyl (Dulcolax) 5 mg DAILY PRN PO .CONSTIPATION; Start 02/06/19 at 22:00 Ceftriaxone Sodium 50 ml @ 100 mls/hr Q24H IVPB ; Start 02/07/19 at 22:00 Hydralazine HCl (Apresoline) 10 mg Q4H PRN IV ELEVATED BLOOD PRESSURE; Start 02/06/19 at 23:00 Carvedilol (Coreg) 3.125 mg BID PO ; Start 02/07/19 at 01:30 Sodium Chloride 1,000 ml @ 40 mls/hr Q24H IV ; Start 02/07/19 at 01:30 Coded Allergies: hydromorphone (Verified Allergy, Severe, 09/06/18) Past Surgical History status post cervical spine, lumbar spine surgery Family History Significant Family History: no pertinent family hx Social History Alcohol Use: none Smoking Status: Never smoker Drug Use: none Exam/Review of Systems Vital Signs Vitals Vital Signs Date Temp Pulse Resp B/P (MAP) Pulse Ox O2 O2 Flow FiO2 Time Delivery Rate 02/07/19 20 157/74 97 Nasal 2.0 03:28 (101) Cannula 02/07/19 96 02:15 02/06/19 98.2 20:10 Exam Exam General: Patient is a pleasant female currently lying in bed in no acute distress HEENT: Atraumatic, normocephalic. The pupils are equal, round and reactive. Extraocular motor are intact no overt bruising noted Neck: Supple with full range of motion. Mild tenderness along the cervical spine but patient reports this is chronic Chest: Nontender Lungs: Clear to auscultation bilaterally no crackles rales or wheezing Heart: Normal S1-S2, Regular rhythm and rate. No murmur, S3, or S4 Abdomen: Soft , nontender, nondistended , bowel sounds are present. No guarding no rebound tenderness , No masses or organomegaly. No costovertebral temporal angle mass Extremities: Normal to inspection, no edema no cyanosis Neurologic: Normal mental status, speech normal, cranial nerves II through XII are intact, motor and sensory are intact, strength 5 out of 5 in the bilateral upper extremities, strength 4 out of 5 in the bilateral lower extremities(reports this is her baseline). No signs of saddle anesthesia. Additional Comments AMENDMENT: 02/07/2019 12:10:01 AM Melissa Mckenzie M.d Findings were discussed with Kentrell Shaw RN by Dr. Melissa Mckenzie on February 06, 2019 at 11:55 p.m.. PST. She will give the results to the provider. PROCEDURE: CT HEAD WITHOUT CONTRAST CLINICAL INDICATION: 73-year of age, female. Syncope. Fall. TECHNIQUE: CT of the head was performed without IV contrast. Coronal and sagittal reformatted images were obtained from the axial source images. Images were reviewed on a high-resolution PACS workstation. DICOM images are available. Dose information: The estimated radiation dose (CTDIvol mGy) for each series in this exam is 38 and 39. The estimated cumulative dose (DLP mGy-cm) is 714. One or more of the following dose reduction techniques were used: - Automated exposure control. - Adjustment of the mA and/or kV according to patient size. - Use of iterative reconstruction technique. COMPARISON: None available. FINDINGS: BRAIN PARENCHYMA: Negative for evidence of acute intraparenchymal hemorrhage, mass effect or large territory infarct. There are patchy low density changes in the supratentorial deep white matter that are nonspecific but likely due to chronic small vessel ischemia. Solomon- white matter differentiation is otherwise maintained. Moderate diffuse cerebral tissue loss. VENTRICLES AND EXTRA-AXIAL SPACES: There is an acute hyperdense subdural hematoma along the right side of the falx over the right frontal lobe that measures up to 0.4 cm in thickness (601/37). There is either an intermediate attenuation subdural hematoma or focal dural thickening over the right cerebral hemisphere at the vertex measuring 0.2 cm (601/63). There is also mild acute convexity subarachnoid hemorrhage in a sulcus over the left vertex (2/21) and over the anterior right frontal lobe (2/7).. The ventricles are proportionate to the sulci in keeping with moderate diffuse cerebral tissue loss. Negative for midline shift. Basal cisterns are normal. VASCULATURE: Moderate intracranial atherosclerosis. VISUALIZED PARANASAL SINUSES AND MASTOID AIR CELLS: Visualized paranasal sinuses: Clear where visualized. Mastoid air cells: Clear. BONES: No focal abnormality. SCALP: No significant abnormality. Additional comment: None. IMPRESSION: 1. Acute hyperdense subdural hematoma alongside the right side of the falx measures up to 0.4 cm. In addition, there is a small intermediate attenuation subdural hematoma over the right vertex versus a focal dural thickening measuring 0.2 cm. Negative for midline shift. 2. Mild acute convexity subarachnoid hemorrhage at the left vertex and over the anterior right frontal lobe. 3. Patchy low density changes in the supratentorial deep white matter are nonspecific but likely due to chronic small vessel ischemia. 4. Moderate intracranial atherosclerosis. Moderate diffuse cerebral tissue loss. A call is in place to Dr Webster by Dr. Melissa Mckenzie on February 06, 2019 at 11:53 p.m. PST. RPTAT: HCTS Kath Mckenzie Physician Date Time Electronically viewed and signed by Kath Mckenzie Physician on 02/07/2019 00:11 CS/ CC: ALINE WEBSTER [id number] PROCEDURE: CT CERVICAL SPINE WITHOUT CONTRAST CLINICAL INDICATION: 73 years of age, female. Pain. Syncope. Fall. TECHNIQUE: A CT of the cervical spine was performed utilizing thin section axial images from the skull base through the thoracic inlet. Coronal and sagittal reformatted images were obtained from the axial source images. Images were reviewed on a high-resolution PACS workstation. DICOM images are available. The CTDIvol is 22 mGy and the DLP is 432 mGy-cm. One or more of the following dose reduction techniques were used: - Automated exposure control. - Adjustment of the mA and/or kV according to patient size. - Use of iterative reconstruction technique. COMPARISON: None available. FINDINGS: Cervical spine is imaged from the skull base to T2. HARDWARE AND POST SURGICAL CHANGE: Status post discectomy and anterior interbody fusion at C5-6 and C6-7 with an anterior plate transfixed by screws and interbody spacers that are incorporated with bony fusion across the discs. Negative for evidence of component loosening or failure. ALIGNMENT: There is reversal of the normal cervical lordosis with a kyphotic deformity centered on the fused segment from C5-C7. There is also a curvature convex left centered on C5. Negative for spondylolisthesis. VERTEBRAE, DISKS AND FACETS: Vertebral bodies and posterior elements are intact without acute fracture. Bones are osteopenic. No suspicious bone lesions. At C6, there is a bone exostosis arising from the posterior vertebral body margin that results in mild central canal stenosis. Thecal sac measures 0.9 cm in AP diameter. At C7, there is a 0.9 cm pedunculated bony exostosis arising from the posterior vertebral body margin that indents the anterior thecal sac and potentially compresses the spinal cord. The thecal sac and spinal cord measures 0.5 cm in AP diameter. 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 There is severe multilevel right facet joint arthritis with bony hypertrophy from the C2-C6 and there is bony fusion of the facet joints from C2-C5. EXTRAVERTEBRAL SOFT TISSUES: No significant abnormality. IMAGED BRAIN: Unremarkable. IMAGED SOFT TISSUES AND LUNG APICES: Moderate enlarged thyroid gland and the thyroid isthmus measures 0.9 cm. There are tortuous extracranial carotid arteries with kissing carotid arteries that have a retropharyngeal course. Additional comment: None. IMPRESSION: 1. Negative for evidence of acute fracture or traumatic subluxation of cervical spine. 2. Status post discectomy and anterior interbody fusion with incorporated hardware at C5-6 and C6-7. There are bone exostoses arising from the dorsal C6 and C7 vertebral bodies that result in severe central canal stenosis at C7 where there is potential compression of the spinal cord. 3. Reversal of the normal cervical lordosis with a kyphotic deformity and curvature convex left. There is multilevel severe right facet joint arthritis with bony hypertrophy and fusion of the facet joints as described. 4. Moderate enlarged thyroid gland may be due to autoimmune thyroiditis. RPTAT: HCTS Physician Alyssa Date Time Electronically viewed and signed by Physician Alyssa on 02/07/2019 00:08 CS/ CC: ALINE WEBSTER [id number] PROCEDURE: Left knee x-ray CLINICAL INDICATION: Trauma TECHNIQUE: AP, lateral and oblique views of the left knee were obtained. COMPARISON: None FINDINGS: There is normal mineralization. No acute fracture or dislocation is seen. There are no significant degenerative changes. There is no joint effusion. There is no significant soft tissue swelling. IMPRESSION: Normal x-ray of the left knee. .Carlin Caldwell MD, Date Time Electronically viewed and signed by .Carlin Caldwell MD, MD on 02/06/2019 21:11 .A/ CC: LINDSEY PORTILLO MD [id number] PROCEDURE: Pelvis x-ray CLINICAL INDICATION: fall TECHNIQUE: Single AP view of the pelvis performed. COMPARISON: None FINDINGS: No acute fractures seen. The hip joints are intact with anatomic alignment. The patient is status post multilevel lower lumbar laminectomy with posterior fusion. There is surgical fusion of the sacroiliac joints. IMPRESSION: No acute fracture or subluxation. Status post multilevel lumbar laminectomy with posterior fusion lower lumbosacral spine and surgical fusion of the sacroiliac joints. .Carlin Caldwell MD, MD Date Time Electronically viewed and signed by .Carlin Caldwell MD, MD on 02/06/2019 21:10 .A/ CC: LINDSEY PORTILLO MD [id number] ALINE WEBSTER February 07, 2019 04:29
[2019-02-07] MEDS ORDERED: PANTOPRAZOLE (EC) 40 MG TAB PO SCH (07:00)
[2019-02-07] MEDS ORDERED: AMLODIPINE 2.5 MG TAB PO ONE (07:30)
[2019-02-07] MEDS ORDERED: LOSARTAN 25 MG TAB PO SCH ×2 (07:30→09:00)
[2019-02-07] MEDS ORDERED: METHIMAZOLE 5 MG TAB PO SCH (09:00)
--- NOTE | 2019-02-07 09:56 | PN ---
Date/Time of Note Date/Time of Note DATE: 02/07/19 TIME: 09:56 Assessment/Plan VTE Prophylaxis SCD applied (from Nsg): Yes Pharmacological prophylaxis: NA/contraindicated Pharm contraindication: bleeding Lines/Catheters IV Catheter Type (from Nrsg): Saline Lock Assessment/Plan Assessment/Plan 1. Acute subdural hematoma s/p fall - Neurosurgery on board and appreciate recommendations. No change on CT scan head and okay for discharge. Will need Keppra 500mg BID for 7 days as prophylaxis - BP remains stable 2. Chronic neck pain - CT neck noted - will need to follow up with outpatient surgeon given history of multiple surgeries with hardware present 3. UTI - continue Keflex for 5 more days 4. Hyperthyroidism - continue methimazole - TSH within normal limits 5. Anxiety - continue home medications 6. HTN - continue home medications 7. Disposition - Medically stable for discharge home Result Diagram: 02/07/19 0339 02/07/19 0339 Results 24hrs Laboratory Tests Test 02/06/19 20:34 02/06/19 21:10 02/06/19 22:14 02/07/19 03:39 White Blood Count 8.0 # 7.5 Red Blood Count 4.49 3.97 L Hemoglobin 11.6 L 10.3 L Hematocrit 39.0 34.0 L Mean Corpuscular 86.9 85.6 Volume Mean Corpuscular 25.8 L 25.9 L Hemoglobin Mean Corpuscular 29.7 L 30.3 L Hemoglobin Concent Red Cell 15.0 H 14.8 H Distribution Width Platelet Count 251 246 Mean Platelet Volume 9.8 9.1 Immature 0.500 H 0.500 H Granulocytes % Neutrophils % 77.9 H 84.8 H Lymphocytes % 12.9 L 10.0 L Monocytes % 6.2 3.1 Eosinophils % 2.1 1.2 Basophils % 0.4 0.4 Nucleated Red Blood 0.0 0.0 Cells % Immature 0.040 H 0.040 H Granulocytes # Neutrophils # 6.2 6.4 Lymphocytes # 1.0 0.8 Monocytes # 0.5 0.2 L Eosinophils # 0.2 0.1 Basophils # 0.0 0.0 Nucleated Red Blood 0.0 0.0 Cells # Sodium Level 139 141 Potassium Level 4.4 4.5 Chloride Level 102 107 Carbon Dioxide Level 28 25 Anion Gap 9 9 Blood Urea Nitrogen 28 H 23 H Creatinine 0.92 0.86 Est Glomerular Filtrat Rate mL/min Glucose Level 162 131 Calcium Level 9.2 8.8 Total Bilirubin 0.2 0.2 Direct Bilirubin 0.00 0.00 Indirect Bilirubin 0.2 0.2 Aspartate Amino 30 24 Transf (AST/SGOT) Alanine 25 19 Aminotransferase (AL T/SGPT) Alkaline Phosphatase 167 H 158 H Troponin I < 0.012 < 0.012 < 0.012 Total Protein 8.5 H 7.8 Albumin 4.1 3.8 Globulin 4.40 H 4.00 H Albumin/Globulin 0.93 0.95 Ratio Lipase 167 Urine Color TRACIE Urine Clarity CLOUDY A Urine pH 5.0 Urine Specific 1.018 [place] Urine Ketones NEGATIVE Urine Nitrite POSITIVE A Urine Bilirubin NEGATIVE Urine Urobilinogen NEGATIVE Urine Leukocyte 1+ H Esterase Urine Microscopic 5 RBC Urine Microscopic 14 H WBC Urine Squamous FEW Epithelial Cells Urine Bacteria FEW A Urine Hemoglobin NEGATIVE Urine Glucose NEGATIVE Urine Total Protein NEGATIVE Creatine Kinase 155 139 Creatine Kinase 1.7 1.4 Index Creatinine Kinase MB 2.60 H 1.94 (Mass) Hemoglobin A1c 5.7 Magnesium Level 1.7 Triglycerides Level 206 H Cholesterol Level 145 LDL Cholesterol, 69 Calculated HDL Cholesterol 35 Cholesterol/HDL 4.1 Ratio Thyroid Stimulating 4.580 Hormone (TSH) Subjective 24 Hr Interval Summary Free Text/Dictation Patient doing well and denies any headache, dizziness, paresthesia, nausea, vomiting, or pain. Exam/Review of Systems Exam Vitals Vital Signs Date Temp Pulse Resp B/P (MAP) Pulse Ox O2 O2 Flow FiO2 Time Delivery Rate 02/07/19 104 08:00 02/07/19 20 166/87 96 Nasal 2.0 06:00 (113) Cannula 02/06/19 98.2 20:10 Exam General: Patient is a pleasant female currently lying in bed in no acute distress Neck: Supple Chest: Nontender Lungs: Clear to auscultation bilaterally no crackles rales or wheezing Heart: Normal S1-S2, Regular rhythm and rate. No murmur, S3, or S4 Abdomen: Soft , nontender, nondistended , bowel sounds are present. No guarding no rebound tenderness Extremities: Normal to inspection, no edema no cyanosis Neuro: motor and sensory intact. no focal deficits appreciated. Results Results 24hrs Laboratory Tests Test 02/06/19 20:34 02/06/19 21:10 02/06/19 22:14 02/07/19 03:39 White Blood Count 8.0 # 7.5 Red Blood Count 4.49 3.97 L Hemoglobin 11.6 L 10.3 L Hematocrit 39.0 34.0 L Mean Corpuscular 86.9 85.6 Volume Mean Corpuscular 25.8 L 25.9 L Hemoglobin Mean Corpuscular 29.7 L 30.3 L Hemoglobin Concent Red Cell 15.0 H 14.8 H Distribution Width Platelet Count 251 246 Mean Platelet Volume 9.8 9.1 Immature 0.500 H 0.500 H Granulocytes % Neutrophils % 77.9 H 84.8 H Lymphocytes % 12.9 L 10.0 L Monocytes % 6.2 3.1 Eosinophils % 2.1 1.2 Basophils % 0.4 0.4 Nucleated Red Blood 0.0 0.0 Cells % Immature 0.040 H 0.040 H Granulocytes # Neutrophils # 6.2 6.4 Lymphocytes # 1.0 0.8 Monocytes # 0.5 0.2 L Eosinophils # 0.2 0.1 Basophils # 0.0 0.0 Nucleated Red Blood 0.0 0.0 Cells # Sodium Level 139 141 Potassium Level 4.4 4.5 Chloride Level 102 107 Carbon Dioxide Level 28 25 Anion Gap 9 9 Blood Urea Nitrogen 28 H 23 H Creatinine 0.92 0.86 Est Glomerular Filtrat Rate mL/min Glucose Level 162 131 Calcium Level 9.2 8.8 Total Bilirubin 0.2 0.2 Direct Bilirubin 0.00 0.00 Indirect Bilirubin 0.2 0.2 Aspartate Amino 30 24 Transf (AST/SGOT) Alanine 25 19 Aminotransferase (AL T/SGPT) Alkaline Phosphatase 167 H 158 H Troponin I < 0.012 < 0.012 < 0.012 Total Protein 8.5 H 7.8 Albumin 4.1 3.8 Globulin 4.40 H 4.00 H Albumin/Globulin 0.93 0.95 Ratio Lipase 167 Urine Color TRACIE Urine Clarity CLOUDY A Urine pH 5.0 Urine Specific 1.018 [place] Urine Ketones NEGATIVE Urine Nitrite POSITIVE A Urine Bilirubin NEGATIVE Urine Urobilinogen NEGATIVE Urine Leukocyte 1+ H Esterase Urine Microscopic 5 RBC Urine Microscopic 14 H WBC Urine Squamous FEW Epithelial Cells Urine Bacteria FEW A Urine Hemoglobin NEGATIVE Urine Glucose NEGATIVE Urine Total Protein NEGATIVE Creatine Kinase 155 139 Creatine Kinase 1.7 1.4 Index Creatinine Kinase MB 2.60 H 1.94 (Mass) Hemoglobin A1c 5.7 Magnesium Level 1.7 Triglycerides Level 206 H Cholesterol Level 145 LDL Cholesterol, 69 Calculated HDL Cholesterol 35 Cholesterol/HDL 4.1 Ratio Thyroid Stimulating 4.580 Hormone (TSH) Medications Medication Current Medications IV Flush (NS 3 ml) 3 ml PER PROTOCOL IV ; Start 02/06/19 at 22:00 Ondansetron HCl (Zofran Inj) 4 mg Q6H PRN IV NAUSEA/VOMITING; Start 02/06/19 at 22:00 Acetaminophen (Tylenol Tab) 650 mg Q6H PRN PO .PAIN 1-3 OR TEMP; Start 02/06/19 at 22:00 Docusate Sodium (Colace) 100 mg Q12H PRN PO .CONSTIPATION; Start 02/06/19 at 22:00 Bisacodyl (Dulcolax) 5 mg DAILY PRN PO .CONSTIPATION; Start 02/06/19 at 22:00 Ceftriaxone Sodium 50 ml @ 100 mls/hr Q24H IVPB ; Start 02/07/19 at 22:00 Hydralazine HCl (Apresoline) 10 mg Q4H PRN IV ELEVATED BLOOD PRESSURE; Start 02/06/19 at 23:00 Sodium Chloride 1,000 ml @ 40 mls/hr Q24H IV ; Start 02/07/19 at 01:30 Methimazole (Tapazole) 5 mg DAILY PO ; Start 02/07/19 at 09:00 Pantoprazole (Protonix Tab) 40 mg AC BREAKFAST PO ; Start 02/07/19 at 07:00 Atorvastatin Calcium (Lipitor) 10 mg DAILY@21 PO ; Start 02/07/19 at 21:00 Losartan Potassium (Cozaar) 12.5 mg DAILY PO ; Start 02/08/19 at 09:00 Carvedilol (Coreg) 6.25 mg BID PO ; Start 02/07/19 at 21:00 TAJ AYALA MD February 07, 2019 09:56
--- NOTE | 2019-02-07 14:37 | CONS ---
Assessment/Plan Assessment/Plan Assessment/Plan (Daily) Diagnoses: 1) Traumatic brain injury 2) Acute subdural hematoma 73 year old who is doing very well s/p ground level fall with very small traumatic subdural hematoma. She has no sequelae from the fall and will follow- up with her spine surgeon regarding her prior fusion. She will go home today with 7 days of keppra 500 bid po. Consultation Date/Type/Reason Admit Date/Time Date of Consultation: February 07, 2019 Type of Consult Neurosurgery Reason for Consultation Traumatic head injury Date/Time of Note DATE: 02/07/19 TIME: 14:30 Hx of Present Illness 73 year old female who had a mechanical ground level fall and hit her head. She was brought to the ED, where she was found to have a very small traumatic falcine subdural hematoma. She has history of spinal fusion surgery, but has no arm or leg symptoms. Past Medical History Home Meds Reported Medications Losartan Potassium* (Losartan Potassium*) 25 Mg Tablet, 12.5 MG PO DAILY 02/07/19 Carvedilol* (Carvedilol*) 6.25 Mg Tablet, 6.25 MG PO BID for 30 Days, #60 02/07/19 Docusate Sodium* (Colace*) 100 Mg Capsule, 100 MG PO BID, #60 CAP 09/06/18 Vitamin B Complex* (Vitamin B Complex*) 1 Each Tablet, 1 TAB PO DAILY, TAB 09/06/18 Acetaminophen* (Acetaminophen*) 500 MG Extra Strength Tablet, 500 MG PO Q4H PRN for PAIN AND OR ELEVATED TEMP, TAB 09/06/18 Sennosides* (Senna Lax*) 8.6 Mg Tablet, 4 TAB PO QHS PRN for CONSTIPATION, TAB 09/06/18 Fluticasone Propionate* (Fluticasone Propionate* Nasal) 50 Mcg/[place] - 16 Gm [place].susp, 1 SPRAY NASAL DAILY, #1 BOTTLE TO EACH NOSTRIL 09/06/18 Folic Acid* (Folic Acid*) 1 Mg Tablet, 1 MG PO DAILY, TAB 09/06/18 Simvastatin (Simvastatin) 10 Mg Tablet, 10 MG PO QHS, #30 TAB 09/06/18 Omeprazole* (Omeprazole*) 40 Mg Capsule.dr, 40 MG PO AC BREAKFAST, #30 CAP 09/06/18 Methimazole* (Methimazole*) 5 Mg Tablet, 5 MG PO DAILY, TAB 09/06/18 Duloxetine Hcl* (Duloxetine Hcl*) 60 Mg Capsule.dr, 60 MG PO DAILY, #30 CAP 09/06/18 Ubidecarenone* (Co Q-10*) 100 Mg Capsule, 200 MG PO DAILY, CAP 09/06/18 Discontinued Reported Medications Levocarnitine* (Levocarnitine*) 330 Mg Tablet, 330 MG PO BID, TAB 09/06/18 Midodrine* (Midodrine*) 5 Mg Tablet, 5 MG PO TID, TAB 09/06/18 Discontinued Scripts Ondansetron (Ondansetron Odt) 4 Mg Tab.rapdis, 4 MG PO Q6H PRN for NAUSEA AND/OR VOMITING, #10 TAB Prov:EMILY OSPINA MD 09/06/18 Amlodipine Besylate* (Amlodipine Besylate*) 2.5 Mg Tablet, 2.5 MG PO DAILY, #30 TAB Prov:SHANKAR CORREA NP 09/09/18 Medications Current Medications IV Flush (NS 3 ml) 3 ml PER PROTOCOL IV ; Start 02/06/19 at 22:00 Ondansetron HCl (Zofran Inj) 4 mg Q6H PRN IV NAUSEA/VOMITING; Start 02/06/19 at 22:00 Acetaminophen (Tylenol Tab) 650 mg Q6H PRN PO .PAIN 1-3 OR TEMP; Start 02/06/19 at 22:00 Docusate Sodium (Colace) 100 mg Q12H PRN PO .CONSTIPATION; Start 02/06/19 at 22:00 Bisacodyl (Dulcolax) 5 mg DAILY PRN PO .CONSTIPATION; Start 02/06/19 at 22:00 Ceftriaxone Sodium 50 ml @ 100 mls/hr Q24H IVPB ; Start 02/07/19 at 22:00 Hydralazine HCl (Apresoline) 10 mg Q4H PRN IV ELEVATED BLOOD PRESSURE; Start 02/06/19 at 23:00 Sodium Chloride 1,000 ml @ 40 mls/hr Q24H IV ; Start 02/07/19 at 01:30 Methimazole (Tapazole) 5 mg DAILY PO ; Start 02/07/19 at 09:00 Pantoprazole (Protonix Tab) 40 mg AC BREAKFAST PO ; Start 02/07/19 at 07:00 Atorvastatin Calcium (Lipitor) 10 mg DAILY@21 PO ; Start 02/07/19 at 21:00 Losartan Potassium (Cozaar) 12.5 mg DAILY PO ; Start 02/08/19 at 09:00 Carvedilol (Coreg) 6.25 mg BID PO ; Start 02/07/19 at 21:00 Allergies: Coded Allergies: hydromorphone (Verified Allergy, Severe, 09/06/18) Social History Alcohol Use: none Smoking Status: Never smoker Drug Use: none Exam/Review of Systems Exam Vitals Vital Signs Date Temp Pulse Resp B/P (MAP) Pulse Ox O2 O2 Flow FiO2 Time Delivery Rate 02/07/19 104 08:00 02/07/19 20 166/87 96 Nasal 2.0 06:00 (113) Cannula 02/06/19 98.2 20:10 Exam 01/15 no clonus or hyperreflexia Results Result Diagram: 02/07/19 0339 02/07/19 0339 Results 24hrs Laboratory Tests Test 02/06/19 20:34 02/06/19 21:10 02/06/19 22:14 02/07/19 03:39 White Blood Count 8.0 # 7.5 Red Blood Count 4.49 3.97 L Hemoglobin 11.6 L 10.3 L Hematocrit 39.0 34.0 L Mean Corpuscular 86.9 85.6 Volume Mean Corpuscular 25.8 L 25.9 L Hemoglobin Mean Corpuscular 29.7 L 30.3 L Hemoglobin Concent Red Cell 15.0 H 14.8 H Distribution Width Platelet Count 251 246 Mean Platelet Volume 9.8 9.1 Immature 0.500 H 0.500 H Granulocytes % Neutrophils % 77.9 H 84.8 H Lymphocytes % 12.9 L 10.0 L Monocytes % 6.2 3.1 Eosinophils % 2.1 1.2 Basophils % 0.4 0.4 Nucleated Red Blood 0.0 0.0 Cells % Immature 0.040 H 0.040 H Granulocytes # Neutrophils # 6.2 6.4 Lymphocytes # 1.0 0.8 Monocytes # 0.5 0.2 L Eosinophils # 0.2 0.1 Basophils # 0.0 0.0 Nucleated Red Blood 0.0 0.0 Cells # Sodium Level 139 141 Potassium Level 4.4 4.5 Chloride Level 102 107 Carbon Dioxide Level 28 25 Anion Gap 9 9 Blood Urea Nitrogen 28 H 23 H Creatinine 0.92 0.86 Est Glomerular Filtrat Rate mL/min Glucose Level 162 131 Calcium Level 9.2 8.8 Total Bilirubin 0.2 0.2 Direct Bilirubin 0.00 0.00 Indirect Bilirubin 0.2 0.2 Aspartate Amino 30 24 Transf (AST/SGOT) Alanine 25 19 Aminotransferase (AL T/SGPT) Alkaline Phosphatase 167 H 158 H Troponin I < 0.012 < 0.012 < 0.012 Total Protein 8.5 H 7.8 Albumin 4.1 3.8 Globulin 4.40 H 4.00 H Albumin/Globulin 0.93 0.95 Ratio Lipase 167 Urine Color TRACIE Urine Clarity CLOUDY A Urine pH 5.0 Urine Specific 1.018 [place] Urine Ketones NEGATIVE Urine Nitrite POSITIVE A Urine Bilirubin NEGATIVE Urine Urobilinogen NEGATIVE Urine Leukocyte 1+ H Esterase Urine Microscopic 5 RBC Urine Microscopic 14 H WBC Urine Squamous FEW Epithelial Cells Urine Bacteria FEW A Urine Hemoglobin NEGATIVE Urine Glucose NEGATIVE Urine Total Protein NEGATIVE Creatine Kinase 155 139 Creatine Kinase 1.7 1.4 Index Creatinine Kinase MB 2.60 H 1.94 (Mass) Hemoglobin A1c 5.7 Magnesium Level 1.7 Triglycerides Level 206 H Cholesterol Level 145 LDL Cholesterol, 69 Calculated HDL Cholesterol 35 Cholesterol/HDL 4.1 Ratio Thyroid Stimulating 4.580 Hormone (TSH) Imaging Imaging Very small falcine subdural hematoma. Stable on repeat imaging. Medications Medication Current Medications IV Flush (NS 3 ml) 3 ml PER PROTOCOL IV ; Start 02/06/19 at 22:00 Ondansetron HCl (Zofran Inj) 4 mg Q6H PRN IV NAUSEA/VOMITING; Start 02/06/19 at 22:00 Acetaminophen (Tylenol Tab) 650 mg Q6H PRN PO .PAIN 1-3 OR TEMP; Start 02/06/19 at 22:00 Docusate Sodium (Colace) 100 mg Q12H PRN PO .CONSTIPATION; Start 02/06/19 at 22:00 Bisacodyl (Dulcolax) 5 mg DAILY PRN PO .CONSTIPATION; Start 02/06/19 at 22:00 Ceftriaxone Sodium 50 ml @ 100 mls/hr Q24H IVPB ; Start 02/07/19 at 22:00 Hydralazine HCl (Apresoline) 10 mg Q4H PRN IV ELEVATED BLOOD PRESSURE; Start 02/06/19 at 23:00 Sodium Chloride 1,000 ml @ 40 mls/hr Q24H IV ; Start 02/07/19 at 01:30 Methimazole (Tapazole) 5 mg DAILY PO ; Start 02/07/19 at 09:00 Pantoprazole (Protonix Tab) 40 mg AC BREAKFAST PO ; Start 02/07/19 at 07:00 Atorvastatin Calcium (Lipitor) 10 mg DAILY@21 PO ; Start 02/07/19 at 21:00 Losartan Potassium (Cozaar) 12.5 mg DAILY PO ; Start 02/08/19 at 09:00 Carvedilol (Coreg) 6.25 mg BID PO ; Start 02/07/19 at 21:00 DAVID BURGOS MD February 07, 2019 14:37
[2019-02-07] MEDS ORDERED: CEPH500C PO ×2 (15:10→15:30)
[2019-02-07] MEDS ORDERED: LEVE-5 PO ×2 (15:10→15:30)
[2019-02-07] MEDS ORDERED: CARV12.579 PO ×2 (15:10→15:30)
--- NOTE | 2019-02-07 15:14 | PDOCDIS ---
Discharge Instructions DIAGNOSIS Discharge Diagnosis 1. Acute subdural hematoma 2. Chronic neck pain s/p fusion C5-6 and C6-7 3. Urinary tract infection, Ecoli 4. Hyperthyroidism 5. Anxiety 6. Hypertension 7. GERD CONDITION [id number] Patient Condition: [id number] Stable HOME CARE INSTRUCTIONS: [id number] Diet Instructions: [id number] Low Fat /Cholesterol FOLLOW UP/APPOINTMENTS Follow-up Plan 1. Follow up with your primary care physician in 1-2 weeks 2. Take Keppra 500mg twice a day with the next dose bessy 02/07. Given your recent head injury this is preventative for seizure activity 3. Take Keflex 500mg twice a day with the next dose tomorrow morning until you complete your prescription. This is an antibiotic to treat your urinary tract infection 4. Your carvedilol dose was increased to 12.5 twice a day for better heart rate and blood pressure control 5. If experiencing any concerning symptoms, please return to the emergency department TAJ AYALA MD February 07, 2019 15:14
--- NOTE | 2019-02-07 15:28 | RADRPT ---
Echocardiogram Report Patient Name: ROSA MARIA CANTUPatient ID: [id number] : 1945 (73y 3m)Study Date: 02/07/2019 10:12:35 AM Gender: FAccession #: [id number] Tech: Drake Vasquez MICHAEL Location: [facility] Ref.Physician: ALINE WEBSTER Height(Cm): BSA: Weight(Kg): Quality: AdequateOrder Physician: ALINE WEBSTER Account #: Procedures: Echocardiographic Report: Transthoracic echocardiogram with complete 2D, M-Mode, and doppler examination. Indications: Chest Pain. Measurements: 2D/M Mode Doppler Measurement Value Normal Range Measurement Value Normal Range LVIDd 2D 4.3 [ 3.8 - 5.2 ] cm AV Peak Facundo 1.5 [ 100.0 - 170.0 ] cm/sec LVIDs 2D 2.2 [ 2.2 - 3.5 ] cm AV Peak PG 9.0 [ 2.0 - 9.0 ] mmHg LVPWd 2D 1.1 [ 0.6 - 0.9 ] cm LVOT Peak [place] 1.2 [ 70.0 - 110.0 ] cm/sec IVSd 2D 1.2 [ 0.6 - 0.9 ] cm LVOT Peak PG 6.0 [ 2.0 - 6.0 ] mmHg AoR Diam 2D 3.3 [ 2.3 - 3.1 ] cm MV E Peak [place] 0.6 [ 60.0 - 130.0 ] cm/sec EDV 2D 83.1 [ 46.0 - 106.0 ] ml MV A Peak [place] 1.0 [ 100.0 - 120.0 ] cm/sec ESV 2D 16.0 [ 14.0 - 42.0 ] ml MV E/A 0.6 [ 0.8 - 1.5 ] ratio EF 2D 80.7 [ 54.0 - 74.0 ] percent MV Decel Time 141 [ 104 - 258 ] msec LA Dimen 2D 3.5 [ 2.7 - 3.8 ] cm Lat E` Facundo 0.1 [ 10.0 - 15.0 ] cm/sec Lateral E/E` 8.9 [ 1.0 - 2.0 ] ratio MV E/A 0.6 [ 0.8 - 1.5 ] ratio Findings: Left Ventricle: Normal left ventricular systolic function. Normal left ventricular cavity size. Mild concentric left ventricular hypertrophy. Ejection fraction is visually estimated at 65 %. Tissue Doppler/Mitral Doppler indices are consistent with impaired relaxation (Stage I diastolic dysfunction). Right Ventricle: Normal right ventricular size. Normal right ventricular systolic function. Left Atrium: The left atrium is normal in size. Right Atrium: The right atrium is normal in size. Mitral Valve: Normal appearance of the mitral valve. Mild mitral leaflet calcification. Trace mitral regurgitation. Aortic Valve: No significant aortic stenosis or insufficiency. Aortic cusps appear mildly calcified. Tricuspid Valve: Normal appearance of the tricuspid valve. Unable to obtain RVSP due to minimal presence of tricuspid regurgitation. Pulmonic Valve: Normal pulmonic valve appearance. Pericardium: Normal pericardium with no significant pericardial effusion. Aorta: Normal aortic root. IVC: Normal size and normal respiratory collapse consistent with normal right atrial pressure. Conclusions: Normal left ventricular systolic function. Normal left ventricular cavity size. Mild concentric left ventricular hypertrophy. Ejection fraction is visually estimated at 65 %. Tissue Doppler/Mitral Doppler indices are consistent with impaired relaxation (Stage I diastolic dysfunction). Normal appearance of the mitral valve. Mild mitral leaflet calcification. Trace mitral regurgitation. No significant aortic stenosis or insufficiency. Aortic cusps appear mildly calcified. Normal appearance of the tricuspid valve. Unable to obtain RVSP due to minimal presence of tricuspid regurgitation. Electronically Signed By: Suresh Davila 2019-02-07 15:27:43 PDT
[2019-02-07] MEDS ORDERED: LEVETIRACETAM 500 MG TAB PO ONE (17:00)
[2019-02-07] MEDS ORDERED: LEVETIRACETAM 500 MG TAB PO SCH ×2 (17:00→21:00)
--- NOTE | 2019-02-07 18:18 | DS ---
Date/Time of Note Date/Time of Note DATE: 02/07/19 TIME: 18:14 Discharge Summary Admission/Discharge Info Admit Date/Time February 06, 2019 at 21:48 Discharge Date/Time February 07, 2019 at 17:10 Discharge Diagnosis 1. Acute subdural hematoma 2. Chronic neck pain s/p fusion C5-6 and C6-7 3. Urinary tract infection, Ecoli 4. Hyperthyroidism 5. Anxiety 6. Hypertension 7. GERD Patient Condition: Stable Consults Neurosurgery- Dr. Garcia Hx of Present Illness Chief complaint: Fall, syncope This is a very pleasant 73-year-old female who was brought in today via EMS after she sustained a syncopal episode. She is accompanied today by her caregiver. Patient normally walks around with a walker. The caregiver reported that she saw the patient walking with her walker and then started to walk slowly and then she fell backwards and hit her head. She states that the patient did lose consciousness for short period of time. Patient at the current time appears to be back at her baseline. Patient does report that she does have some neck pain but she states that this is a chronic issue that she has dealt with for some time and she has had spinal surgery for this. She denies any numbness or tingling in her bilateral upper or lower extremities. She denies any urinary incontinence. Denies any saddle anesthesia. She does report that she does feel thirsty. During my examination in the emergency department after she reported to me that she did hit her head and lose consciousness. I did do a further neurological examination which again did not elicit any overt neurological deficits. She does have decreased strength in her bilateral lower extremities 4 out of 5 but she reports that this is chronic. She is able to wiggle her toes. However given the clinical picture I did order a CT of the brain without contrast as well as a CT of the cervical spine. CT study showed: Acute hyperdense subdural hematoma alongside the right side of the falx measures up to 0.4 cm. In addition, there is a small intermediate attenuation subdural hematoma over the right vertex versus a focal dural thickening measuring 0.2 cm. Mild acute convexity subarachnoid hemorrhage at the left vertex and over the anterior right frontal lobe. Negative for midline shift.Negative for evidence of acute fracture or traumatic subluxation of cervical spine. Status post discectomy and anterior interbody fusion with incorporated hardware at C5-6 and C6-7. There are bone exostoses arising from the dorsal C6 and C7 vertebral bodies that result in severe central canal stenosis at C7 where there is potential compression of the spinal cord. Reversal of the normal cervical lordosis with a kyphotic deformity and curvature convex left. There is multilevel severe right facet joint arthritis with bony hypertrophy and fusion of the facet joints as described. Allergies: Hydromorphone Hospital Course Patient was admitted to ICU for close monitoring and neurochecks. Neurosurgery consulted and recommended repeat CT head which showed no change in subdural hematoma. Patients blood pressure remained stable and did not develop any new neurological symptoms. She was found with UTI and continued on IV antibiotics. Patient was cleared by neurosurgery for discharge on Keppra for 7 days. Patient denies any new issues and BB dose was increased given tachycardia episodes. Patients presenting symptoms remained stable and she was discharged home in good condition with course of antibiotics and Keppra. Home Meds Active Scripts Cephalexin* (Cephalexin*) 500 Mg Capsule, 500 MG PO BID for 5 Days, #10 CAP Prov:TAJ AYALA MD 02/07/19 Levetiracetam* (Keppra*) 500 Mg Tablet, 500 MG PO BID for 7 Days, #14 TAB Prov:TAJ AYALA MD 02/07/19 Carvedilol* (Carvedilol*) 12.5 Mg Tablet, 12.5 MG PO BID for 30 Days, #60 TAB Prov:TAJ AYALA MD 02/07/19 Reported Medications Losartan Potassium* (Losartan Potassium*) 25 Mg Tablet, 12.5 MG PO DAILY 02/07/19 Docusate Sodium* (Colace*) 100 Mg Capsule, 100 MG PO BID, #60 CAP 09/06/18 Vitamin B Complex* (Vitamin B Complex*) 1 Each Tablet, 1 TAB PO DAILY, TAB 09/06/18 Acetaminophen* (Acetaminophen*) 500 MG Extra Strength Tablet, 500 MG PO Q4H PRN for PAIN AND OR ELEVATED TEMP, TAB 09/06/18 Sennosides* (Senna Lax*) 8.6 Mg Tablet, 4 TAB PO QHS PRN for CONSTIPATION, TAB 09/06/18 Fluticasone Propionate* (Fluticasone Propionate* Nasal) 50 Mcg/[place] - 16 Gm [place].susp, 1 SPRAY NASAL DAILY, #1 BOTTLE TO EACH NOSTRIL 09/06/18 Folic Acid* (Folic Acid*) 1 Mg Tablet, 1 MG PO DAILY, TAB 09/06/18 Simvastatin (Simvastatin) 10 Mg Tablet, 10 MG PO QHS, #30 TAB 09/06/18 Omeprazole* (Omeprazole*) 40 Mg Capsule.dr, 40 MG PO AC BREAKFAST, #30 CAP 09/06/18 Methimazole* (Methimazole*) 5 Mg Tablet, 5 MG PO DAILY, TAB 09/06/18 Duloxetine Hcl* (Duloxetine Hcl*) 60 Mg Capsule.dr, 60 MG PO DAILY, #30 CAP 09/06/18 Ubidecarenone* (Co Q-10*) 100 Mg Capsule, 200 MG PO DAILY, CAP 09/06/18 Discontinued Reported Medications Carvedilol* (Carvedilol*) 6.25 Mg Tablet, 6.25 MG PO BID for 30 Days, #60 02/07/19 Levocarnitine* (Levocarnitine*) 330 Mg Tablet, 330 MG PO BID, TAB 09/06/18 Midodrine* (Midodrine*) 5 Mg Tablet, 5 MG PO TID, TAB 09/06/18 Discontinued Scripts Ondansetron (Ondansetron Odt) 4 Mg Tab.rapdis, 4 MG PO Q6H PRN for NAUSEA AND/OR VOMITING, #10 TAB Prov:EMILY OSPINA MD 09/06/18 Amlodipine Besylate* (Amlodipine Besylate*) 2.5 Mg Tablet, 2.5 MG PO DAILY, #30 TAB Prov:SHANKAR CORREA NP 09/09/18 Follow-up Plan 1. Follow up with your primary care physician in 1-2 weeks 2. Take Keppra 500mg twice a day with the next dose tonight, 02/07. Given your recent head injury this is preventative for seizure activity 3. Take Keflex 500mg twice a day with the next dose tomorrow morning until you complete your prescription. This is an antibiotic to treat your urinary tract infection 4. Your carvedilol dose was increased to 12.5 twice a day for better heart rate and blood pressure control 5. If experiencing any concerning symptoms, please return to the emergency department Primary Care Provider Not On Staff Doctor Time spent on discharge: > 30 minutes Pending Labs Laboratory Tests Test 02/06/19 20:34 02/06/19 21:10 02/06/19 22:14 02/07/19 03:39 White Blood 8.0 7.5 Count 10^3/ul (4.8-10 10^3/ul (4.8-1 .8) 0.8) Red Blood 4.49 3.97 Count 10^6/ul (4.20-5 10^6/ul (4.20- .40) 5.40) Hemoglobin 11.6 10.3 g/dl (12.0-16.0 g/dl (12.0-16. ) 0) Hematocrit 39.0 34.0 % (37.0-47.0) % (37.0-47.0) Mean 86.9 85.6 Corpuscular fl (82.0-101.0) fl (82.0-101.0 Volume ) Mean 25.8 25.9 Corpuscular pg (29.0-33.0) pg (29.0-33.0) Hemoglobin Mean 29.7 30.3 Corpuscular g/dl (32.0-37.0 g/dl (32.0-37. Hemoglobin Conc ) 0) ent Red Cell 15.0 14.8 Distribution % (11.5-14.5) % (11.5-14.5) Width Platelet Count 251 246 10^3/UL (140-41 10^3/UL (140-4 5) 15) Mean Platelet 9.8 9.1 Volume fl (7.4-10.4) fl (7.4-10.4) Immature 0.500 0.500 Granulocytes % % (0.001-0.429) % (0.001-0.429 ) Neutrophils % 77.9 84.8 % (39.0-77.0) % (39.0-77.0) Lymphocytes % 12.9 10.0 % (15.0-51.0) % (15.0-51.0) Monocytes % 6.2 3.1 % (0.0-11.0) % (0.0-11.0) Eosinophils % 2.1 % (0.0-7.0) 1.2 % (0.0-7.0) Basophils % 0.4 % (0.0-2.0) 0.4 % (0.0-2.0) Nucleated Red 0.0 0.0 Blood Cells % /100WBC (0.0-0. /100WBC (0.0-0 0) .0) Immature 0.040 0.040 Granulocytes # 10^3/ul (0.0-0. 10^3/ul (0.0-0 031) .031) Neutrophils # 6.2 6.4 10^3/ul (1.6-7. 10^3/ul (1.6-7 5) .5) Lymphocytes # 1.0 0.8 10^3/ul (0.8-2. 10^3/ul (0.8-2 9) .9) Monocytes # 0.5 0.2 10^3/ul (0.3-0. 10^3/ul (0.3-0 9) .9) Eosinophils # 0.2 0.1 10^3/ul (0.0-0. 10^3/ul (0.0-0 5) .5) Basophils # 0.0 0.0 10^3/ul (0.0-0. 10^3/ul (0.0-0 1) .1) Nucleated Red 0.0 0.0 Blood Cells # 10^3/ul (0.0-0. 10^3/ul (0.0-0 0) .0) Sodium Level 139 141 mmol/L (135-144 mmol/L (135-14 ) 4) Potassium 4.4 4.5 Level mmol/L (3.5-5.1 mmol/L (3.5-5. ) 1) Chloride Level 102 107 mmol/L (97-110) mmol/L (97-110 ) Carbon Dioxide 28 25 Level mmol/L (21-31) mmol/L (21-31) Anion Gap 9 (5-13) 9 (5-13) Blood Urea 28 mg/dl (7-20) 23 Nitrogen mg/dl (7-20) Creatinine 0.92 0.86 mg/dl (0.44-1.0 mg/dl (0.44-1. 0) 00) Est Glomerular mL/min (>60) mL/min (>60) Filtrat Rate mL/min Glucose Level 162 131 mg/dl (70-220) mg/dl (70-220) Calcium Level 9.2 8.8 mg/dl (8.4-10.2 mg/dl (8.4-10. ) 2) Total 0.2 0.2 Bilirubin mg/dl (0.2-1.3) mg/dl (0.2-1.3 ) Direct 0.00 0.00 Bilirubin mg/dl (0.00-0.2 mg/dl (0.00-0. 0) 20) Indirect 0.2 0.2 Bilirubin mg/dl (0-1.1) mg/dl (0-1.1) Aspartate Amino 30 IU/L (15-46) 24 Transf (AST/SGO IU/L (15-46) T) Alanine 25 IU/L (13-69) 19 Aminotransferas IU/L (13-69) e (ALT/SGPT) Alkaline 167 158 Phosphatase IU/L (42-121) IU/L (42-121) Troponin I < 0.012 < 0.012 < 0.012 ng/ml (0.000-0. ng/ml (0.000-0 ng/ml (0.000-0 120) .120) .120) Total Protein 8.5 7.8 g/dl (6.1-8.1) g/dl (6.1-8.1) Albumin 4.1 3.8 g/dl (3.3-4.9) g/dl (3.3-4.9) Globulin 4.40 4.00 g/dl (1.3-3.2) g/dl (1.3-3.2) Albumin/Globuli 0.93 0.95 n Ratio Lipase 167 U/L (23-300) Urine Color TRACIE (YELLOW) Urine Clarity CLOUDY (CLEAR) Urine pH 5.0 (5.0-9.0) Urine Specific 1.018 (1.003-1 [place] .030) Urine Ketones NEGATIVE mg/dL (NEGATIV E) Urine Nitrite POSITIVE mg/dL (NEGATIV E) Urine NEGATIVE Bilirubin mg/dL (NEGATIV E) Urine NEGATIVE Urobilinogen mg/dL (NEGATIV E) Urine Leukocyte 1+ Esterase Mor/ul (NEGATI VE) Urine 5 /HPF (0-5) Microscopic RBC Urine 14 /HPF (0-5) Microscopic WBC Urine Squamous FEW /HPF (FEW) Epithelial Cell s Urine Bacteria FEW /HPF (NONE SEEN) Urine NEGATIVE Hemoglobin mg/dL (NEGATIV E) Urine Glucose NEGATIVE mg/dL (NEGATIV E) Urine Total NEGATIVE Protein mg/dl (NEGATIV E) Creatine 155 139 Kinase IU/L (23-200) IU/L (23-200) Creatine Kinase 1.7 1.4 Index Creatinine 2.60 1.94 Kinase MB ng/ml (0.0-2.4 ng/ml (0.0-2.4 (Mass) ) ) Hemoglobin A1c 5.7 % (0-5.9) Magnesium 1.7 Level mg/dl (1.7-2.5 ) Triglycerides 206 Level mg/dl (0-149) Cholesterol 145 Level mg/dl (100-200 ) LDL 69 mg/dl Cholesterol, Calculated HDL 35 Cholesterol mg/dl (33-92) Cholesterol/HDL 4.1 RATIO Ratio Thyroid 4.580 Stimulating MIU/L (0.465-4 Hormone (TSH) .680) Microbiology Date/Time Source Procedure Growth Status 02/06/19 21:10 Catheter Urine Urine Culture - Preliminary Gram Resulted Negative Bobby TAJ AYALA MD February 07, 2019 18:18
[2019-02-07] MEDS ORDERED: ATORVASTATIN 10 MG TAB PO SCH (21:00)
[2019-02-07] MEDS ORDERED: CEFTRIAXONE 1 GM/50 ML (PMX) 50 ML IVPB SCH (22:00)
[2019-02-08] MEDS ORDERED: LOSARTAN 25 MG TAB PO SCH (09:00)
== END 2019-02-07 17:10 | disposition home or self-care (01) | DRG 86 ==
LOC: E/R 19:58 → ICU 21:48 → EDBEDREQSVC 02-07 00:34 → EDBEDREQ 02-07 00:36
PROVIDERS: ADMIT Family Medicine; ATTEND Family Medicine
DX: S06.5X0A Traumatic subdural hemorrhage without loss of consciousness, initial encounter (principal); N39.0 Urinary tract infection, site not specified; E86.0 Dehydration; M54.2 Cervicalgia; B96.20 Unspecified Escherichia coli [E. coli] as the cause of diseases classified elsewhere; E05.90 Thyrotoxicosis, unspecified without thyrotoxic crisis or storm; R55 Syncope and collapse; F41.9 Anxiety disorder, unspecified; I10 Essential (primary) hypertension; K21.9 Gastro-esophageal reflux disease without esophagitis; W18.30XA Fall on same level, unspecified, initial encounter
CPT/HCPCS: 70450; 71045; 72125; 72170; 73562; 80053; 80061; 81001; 82550; 82553; 83036; 83690; 83735; 84443; 84484; 85025; 87081; 87086; 93005; 93306; 93880; J0696; J1100; J7030; J7120; P9612